=== PATIENT | female | born 1990 | race Caucasian/White ===

== ENCOUNTER → 2016-12-10 | Outpatient (CLI) | payer OTHER ==
[~2016-12-10] MED LIST: ACET-1256 PO; PRENTAB26 PO; VALA1TAB31 PO; VALA500T60 PO
[2016-12-10 13:54] LABS: GTGD 50 Grams
== END | disposition home or self-care (01) ==
LOC: C.LAB1850 09:31
PROVIDERS: ATTEND Obstetrics & Gynecology
DX: O09.42 Supervision of pregnancy with grand multiparity, second trimester (principal); Z3A.00 Weeks of gestation of pregnancy not specified

== ENCOUNTER 2017-01-01 13:12 | Emergency (ER) | payer OTHER ==
[~2017-01-01] VITALS: Ht 170.2 cm; Wt 112.7 kg
[~2017-01-01 13:12] MED LIST changes: -ACET-1256 PO; -PRENTAB26 PO; -VALA1TAB31 PO
[2017-01-01 13:14] VITALS: TEMP 36.8; Ht 170.2 cm; Wt 112.7 kg
[2017-01-01] MEDS ORDERED: SODIUM CHLORIDE 0.9% 1000ML 1,000 ML IV STA (13:58)
[2017-01-01] MEDS ORDERED: ALBUT/IPRATROP 3MG/0.5MG NEB 3 ML VIAL INH STA (13:58)
--- NOTE | 2017-01-01 14:08 | EMERGENCY ROOM VISIT NOTE ---
History Report prepared by Angeline: Kobi Morales Under the Supervision of: Dr. Laura Brady M.D. First contact with patient: 13:47 Chief Complaint: ABDOMINAL PAIN Stated Complaint: CRAMPING,LWR BP, PAIN RT LEG/HIP,N,D-20 WKS. PREG History of Present Illness The patient is a 26 year old female who presents to the Emergency Room with complaints of persistent lower abdominal pain that started 3 days ago. She is 20 -weeks . The patient describes the pain as a cramping. She also has been experiencing constant back pain that started a week or 2 ago, in addition to a sharp pain in her right hip that radiates down her right leg. The patient notes that the hip and leg pain is constant but waxes and wanes. At worst, she says the pain is unbearable. The patient started having episodes of vomiting and diarrhea last night that has continued into this morning. She thinks she may be catching a GI bug. 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 She does not know if she overdid anything to cause her pain. This is the patient's 5th , and she says that she usually gets a UTI when . The patient denies any painful urination however. She has been urinating a bit less than normal recently. The patient also denies any chest pain, shortness of breath, or fevers. She has not had any abdominal surgeries. Source of History: patient Onset: 3 days ago Position: abdomen Quality: cramping Timing: other (persistent) Associated Symptoms: + back pain, + diarrhea, + vomiting, No SOB, No chest pain, No fevers Note: Associated symptoms: Urinating a bit less than normal. Denies painful urination. Review of Systems See HPI for pertinent positives & negatives. A total of 10 systems reviewed and were otherwise negative. Past Medical & Surgical Medical Problems: (1) Depression Family History No pertinent family history Social History Smoking Status: Never Smoker Alcohol Use: none Drug Use: none Marital Status: Housing Status: lives with family Occupation Status: employed Current/Historical Medications Scheduled Multivit/Min/Iron/Fol Ac/Pren ( Vitamin), 1 TAB PO DAILY Valacyclovir (Valtrex), 500 MG PO DAILY Scheduled PRN Acetaminophen (Tylenol), 500 MG PO Q6H PRN for Pain Allergies Coded Allergies: Morphine (Unverified Allergy, Unknown, HIVES, 01/01/17) Physical Exam Vital Signs Date Time Temp Pulse Resp B/P Pulse Ox O2 Delivery O2 Flow Rate FiO2 01/01/17 16:14 95 16 108/72 100 01/01/17 14:59 92 18 98 Room Air 01/01/17 13:14 36.8 101 18 106/65 97 Physical Exam Vital signs reviewed. General: Well-appearing obese 26 year old female, in no significant distress. HEENT: No scleral icterus, PERRLA, neck supple. Atraumatic. Cardiovascular: Regular rate and rhythm, no extra sounds. Pulmonary: Clear to auscultation bilaterally, normal work of breathing. Abdomen: Gravid abdomen, mild right lower quadrant tenderness to palpation, positive bowel sounds. Musculoskeletal: Atraumatic, no peripheral edema. No CVA tenderness. Neurologic: Patient awake alert and oriented x 3, full strength in all 4 extremities. Cranial nerves 2 through 12 grossly intact. Skin: Warm, dry, no rash Medical Decision & Procedures Laboratory Results 01/01/17 14:25 Red Blood Count 4.05, Mean Corpuscular Volume 86.2, Mean Corpuscular Hemoglobin 29.1, Mean Corpuscular Hemoglobin Concent 33.8, Mean Platelet Volume 9.1, Neutrophils (%) (Auto) 78.2, Lymphocytes (%) (Auto) 15.6, Monocytes (%) (Auto) 5.5, Eosinophils (%) (Auto) 0.3, Basophils (%) (Auto) 0.1, Neutrophils # (Auto) 5.73, Lymphocytes # (Auto) 1.14, Monocytes # (Auto) 0.40, Eosinophils # (Auto) 0.02, Basophils # (Auto) 0.01 01/01/17 14:25 Test 01/01/17 14:25 01/01/17 14:55 White Blood Count 7.32 K/uL (4.8-10.8) Red Blood Count 4.05 M/uL (4.2-5.4) Hemoglobin 11.8 g/dL (12.0-16.0) Hematocrit 34.9 % (37-47) Mean Corpuscular Volume 86.2 fL (80-100) Mean Corpuscular Hemoglobin 29.1 pg (25-34) Mean Corpuscular Hemoglobin Concent 33.8 g/dl (32-36) Platelet Count 215 K/uL (130-400) Mean Platelet Volume 9.1 fL (7.4-10.4) Neutrophils (%) (Auto) 78.2 % Lymphocytes (%) (Auto) 15.6 % Monocytes (%) (Auto) 5.5 % Eosinophils (%) (Auto) 0.3 % Basophils (%) (Auto) 0.1 % Neutrophils # (Auto) 5.73 K/uL (1.4-6.5) Lymphocytes # (Auto) 1.14 K/uL (1.2-3.4) Monocytes # (Auto) 0.40 K/uL (0.11-0.59) Eosinophils # (Auto) 0.02 K/uL (0-0.5) Basophils # (Auto) 0.01 K/uL (0-0.2) RDW Standard Deviation 43.2 fL (36.4-46.3) RDW Coefficient of Variation 13.9 % (11.5-14.5) Immature Granulocyte % (Auto) 0.3 % Immature Granulocyte # (Auto) 0.02 K/uL (0.00-0.02) Anion Gap 10.0 mmol/L (3-11) Est Creatinine Clear Calc Drug Dose 199.0 ml/min Estimated GFR () 149.0 Estimated GFR (Non- 128.5 BUN/Creatinine Ratio 10.9 (10-20) Calcium Level 8.1 mg/dl (8.5-10.1) Magnesium Level 2.0 mg/dl (1.8-2.4) Total Bilirubin 0.4 mg/dl (0.2-1) Direct Bilirubin < 0.1 mg/dl (0-0.2) Aspartate Amino Transf (AST/SGOT) 13 U/L (15-37) Alanine Aminotransferase (ALT/SGPT) 14 U/L (12-78) Alkaline Phosphatase 62 U/L (45-117) Total Protein 7.2 gm/dl (6.4-8.2) Albumin 3.0 gm/dl (3.4-5.0) Urine Color YELLOW Urine Appearance CLEAR (CLEAR) Urine pH 6.0 (4.5-7.5) Urine Specific [place] 1.032 (1.000-1.030) Urine Protein NEG (NEG) Urine Glucose (UA) NEG (NEG) Urine Ketones TRACE (NEG) Urine Occult Blood NEG (NEG) Urine Nitrite NEG (NEG) Urine Bilirubin NEG (NEG) Urine Urobilinogen NEG (NEG) Urine Leukocyte Esterase NEG (NEG) Laboratory results per my review. Medications Administered Medications (Trade) Dose Ordered Sig/Debi Route Start Time Stop Time Status Last Admin Dose Admin Sodium Chloride (Nss 1000ml) 1,000 ml @ 999 mls/hr Q1H1M STAT IV 01/01/17 13:58 01/01/17 14:58 DC 01/01/17 14:55 999 MLS/HR ED Course 1355: Past medical records reviewed. The patient was evaluated in room B6. A complete history and physical examination was performed. 1358: Ordered NSS 1000 ml @ 999 mls/hr IV, Duoneb 3 ml INH. 1545: Upon reevaluation, the patient appeared to have improvement of her symptoms. I discussed findings with her. She verbalized agreement of the treatment plan. She was discharged home. Medical Decision Differential diagnoses include: appendicitis, diverticulitis, ovarian cyst, round ligament pain, sciatica, labor, pyelonephritis, cystitis. This pt was evaluated and appeared to be in no distress. IV access was obtained and lab work was drawn. PT was hydrated with NSS. UA was negative, lab work was unrevealing. Pt has had this pain for several weeks, I am not inclined to think that this is acute etiology. There were no acute peritoneal signs. Pt was stable for d/c to f/u with OBGYN this week. She will return to the ED for worsening of symptoms or any medical concerns. Impression Primary Impression: Right groin pain Additional Impression: with 20 completed weeks gestation Scribe Attestation The scribe's documentation has been prepared under my direction and personally reviewed by me in its entirety. I confirm that the note above accurately reflects all work, treatment, procedures, and medical decision making performed by me. Departure Information Dispostion Home / Self-Care Referrals No Doctor, Assigned (PCP) Vasu Mcdonald M.D. Forms HOME CARE DOCUMENTATION FORM, IMPORTANT VISIT INFORMATION Patient Instructions My [facility] Additional Instructions Diagnosis: Right groin pain, 20 week . Drink plenty of clear fluids. Tylenol 650 mg every 6 hours as needed for pain or fever. Follow-up with your [facility] physician this week for reevaluation. Return to the ER for worsening of symptoms or any medical concerns. Problem Qualifiers
[2017-01-01 14:38] LABS: BASO % 0.1 %; BASO ABS # 0.01 K/uL (0-0.2); COMPLETE YES; EOS % 0.3 %; HEMATOCRIT 34.9 % (37-47); IG% 0.3 %; LYMPH % 15.6 %; LYMPH ABS # 1.14 K/uL (1.2-3.4); MEAN CELL VOLUME 86.2 fL (80-100); MEAN CORPUSCULAR HEMOGLOBIN 29.1 pg (25-34); MEAN CORPUSCULAR HGB CONC 33.8 g/dl (32-36); MEAN PLATELET VOLUME 9.1 fL (7.4-10.4); MONO % 5.5 %; NEUT % 78.2 %; PLATELET COUNT 215 K/uL (130-400); RED BLOOD COUNT 4.05 M/uL (4.2-5.4); WHITE BLOOD COUNT 7.32 K/uL (4.8-10.8)
[2017-01-01 15:04] LABS: ALT/SGPT 14 U/L (12-78); BLOOD UREA NITROGEN 6 mg/dl (7-18); BUN/CREATININE RATIO 10.9 (10-20); CALCIUM 8.1 mg/dl (8.5-10.1); CARBON DIOXIDE 20 mmol/L (21-32); CHLORIDE 107 mmol/L (98-107); CREATININE 0.55 mg/dl (0.60-1.20); GLUCOSE 82 mg/dl (70-99); POTASSIUM 3.6 mmol/L (3.5-5.1); SODIUM 137 mmol/L (136-145)
[2017-01-01 15:07] LABS: ALKALINE PHOSPHATASE 62 U/L (45-117); AST/SGOT 13 U/L (15-37)
[2017-01-01 15:27] LABS: URINE APPEARANCE CLEAR (CLEAR); URINE BILIRUBIN NEG (NEG); URINE COLOR YELLOW; URINE NITRITE NEG (NEG); URINE SPECIFIC GRAVITY 1.032 (1.000-1.030); UROBILINOGEN NEG (NEG); ZZUR CULT IF INDIC CLEAN CATCH NO
[2017-01-01 15:30] LABS: MANUAL MICROSCOPIC REQUIRED? NO; REVIEW REQ? NO
[2017-01-01 16:14] VITALS: BP 108/72; PULSE 95; O2SAT 100
[2017-03-16] MEDS ORDERED: PRENTAB26 PO (00:26)
[2017-03-16] MEDS ORDERED: ACET-1256 PO (00:27)
== END 2017-01-01 16:16 | disposition home or self-care (01) ==
LOC: C.EDB 13:14
DX: O26.892 Other specified pregnancy related conditions, second trimester (principal); R10.9 Unspecified abdominal pain; Z3A.20 20 weeks gestation of pregnancy; F32.9 Major depressive disorder, single episode, unspecified; Z79.899 Other long term (current) drug therapy

== ENCOUNTER → 2017-02-27 | Outpatient (CLI) | payer OTHER ==
[~2017-02-27] MED LIST changes: +ACET-1256 PO; +PRENTAB26 PO; +VALA1TAB31 PO
[2017-02-27 11:05] LABS: URINE APPEARANCE CLEAR (CLEAR); URINE BILIRUBIN NEG (NEG); URINE COLOR YELLOW; URINE EPITHELIAL CELL AUTO 20-30 /lpf (0-5); URINE NITRITE NEG (NEG); URINE PH 6.5 (4.5-7.5); URINE SPECIFIC GRAVITY 1.022 (1.000-1.030); UROBILINOGEN NEG (NEG)
[2017-02-27 11:06] LABS: MANUAL MICROSCOPIC REQUIRED? NO; REVIEW REQ? NO
[2017-02-27 12:19] LABS: HEMATOCRIT 32.3 % (37-47)
[2017-02-27 13:21] LABS: GTGD 50 Grams
== END | disposition home or self-care (01) ==
LOC: C.LAB1850 09:25
PROVIDERS: ATTEND Obstetrics & Gynecology
DX: O09.43 Supervision of pregnancy with grand multiparity, third trimester (principal); Z3A.00 Weeks of gestation of pregnancy not specified

== ENCOUNTER → 2017-03-10 | Outpatient (CLI) | payer OTHER ==
[2017-03-10 14:44] LABS: URINE APPEARANCE CLEAR (CLEAR); URINE BILIRUBIN NEG (NEG); URINE COLOR DK YELLOW; URINE EPITHELIAL CELL AUTO >30 /lpf (0-5); URINE NITRITE NEG (NEG); URINE PH 6.5 (4.5-7.5); URINE SPECIFIC GRAVITY 1.025 (1.000-1.030); UROBILINOGEN NEG (NEG)
[2017-03-10 14:50] LABS: MANUAL MICROSCOPIC REQUIRED? NO; REVIEW REQ? NO
== END | disposition home or self-care (01) ==
LOC: C.LABSPEC 14:06
PROVIDERS: ATTEND Obstetrics & Gynecology
DX: R30.0 Dysuria (principal)

== ENCOUNTER 2017-03-16 20:01 | Emergency (ER) | payer OTHER ==
[~2017-03-16] VITALS: Ht 170.2 cm; Wt 118.0 kg
[~2017-03-16 20:01] MED LIST changes: -VALA1TAB31 PO
[2017-03-16 20:05] VITALS: TEMP 36.8; Ht 170.2 cm; Wt 118.0 kg
[2017-03-16] MEDS ORDERED: SODIUM CHLORIDE 0.9% 1000ML 1,000 ML IV ONE (20:33)
[2017-03-16] MEDS ORDERED: SODIUM CHLORIDE 0.9% 1000ML 1,000 ML IV STA (20:33)
--- NOTE | 2017-03-16 20:35 | EMERGENCY ROOM VISIT NOTE ---
History Report prepared by Mendozaibzhen: Connor Rodrigez Under the Supervision of: Dr. Gold Strickland M.D. First contact with patient: 20:18 Chief Complaint: GI ASSESSMENT Stated Complaint: PAIN AROUND GALL BLADDER, DIZZY, 30 WKS PREG Nursing Triage Summary: Pt is 30+ weeks . c/o right flank pain, nausea and diarrhea. pt to be evaled in ED per dr Mar unless BP or VS elevated History of Present Illness The patient is a 26 year old female who presents to the Emergency Room with complaints of worsening right upper quadrant abdominal pain since yesterday. The pain radiates to her back. The pain is dull in nature, and is worse when she lays on her back. She becomes short of breath with exertion. She currently has a minor headache. She denies chest pain, urinary symptoms, pain or swelling of the legs. She had a UTI that is resolved one week ago. The patient still has her gallbladder, but does have a family history of gallbladder disease. The patient is 30 weeks . P:4. She has only had vaginal deliveries. The patient is not having contractions or vaginal discharge. She denies any history of blood clots. Source of History: patient, spouse/significant other Onset: yesterday Position: abdomen (RUQ) Quality: dull Timing: worsening Associated Symptoms: + SOB, + back pain, + headache, No chest pain, No urinary symptoms Review of Systems See HPI for pertinent positives & negatives. A total of 10 systems reviewed and were otherwise negative. Past Medical & Surgical Medical Problems: (1) Depression Old medical records were reviewed. Nurse's notes were reviewed and I agree with. This is her fifth . Family History No pertinent family history Her sisters have had gallbladders removed Social History Smoking Status: Never Smoker Alcohol Use: none Drug Use: none Marital Status: Housing Status: lives with family Occupation Status: employed Current/Historical Medications Scheduled Multivit/Min/Iron/Fol Ac/Pren ( Vitamin), 1 TAB PO DAILY Valacyclovir Hcl (Valtrex), 1 GM PO DAILY Scheduled PRN Acetaminophen (Tylenol), 500 MG PO Q6H PRN for Pain Allergies Coded Allergies: Morphine (Unverified Allergy, Unknown, HIVES, 01/01/17) Physical Exam Vital Signs Date Time Temp Pulse Resp B/P Pulse Ox O2 Delivery O2 Flow Rate FiO2 03/16/17 23:46 71 18 111/68 99 03/16/17 22:11 73 16 118/73 97 Room Air 03/16/17 20:05 36.8 103 18 116/79 96 Room Air Physical Exam General: Non ill appearing gravid young female, breathing comfortably on room air. Normal speech HEENT: Normal cephalic atraumatic. Pupils are equal round and reactive to light. Extraocular movements are intact. Oropharynx is pink with moist mucous membranes. No swelling of the mouth lips or tongue. Neck: Supple with a midline trachea. No meningeal signs or stiffness, no JVD or bruits. No Stridor. Chest: Clear to auscultation bilaterally. No wheezes or rhonchi. No increased work of breathing. Heart: regular rate and rhythm. Abdomen: Moderately tender in the right upper quadrant without rebound guarding or rigidity. No lower abdominal tenderness. Extremities: No cyanosis clubbing or edema. No calf tenderness or assymetry Spine/Back. Non tender to palpation. No CVA tenderness Skin: Good turgor without rashes. Neurologic exam: Cranial nerves two through 12 are intact. Motor and sensation are intact and symmetrical throughout. Medical Decision & Procedures ER Provider Diagnostic Interpretation: Radiology results as stated below per my review and radiologist interpretation: ABDOMINAL ULTRASOUND, RIGHT UPPER QUADRANT HISTORY: Right upper quadrant abdominal pain.. COMPARISON: Abdominal ultrasound 06/02/2015. Abdomen and pelvis CT 08/18/2015. FINDINGS: Pancreas: Obscured by overlying bowel gas. Liver: A 1.8 cm hyperechoic area within the left hepatic lobe near the falciform ligament likely represents focal fat. This remains unchanged. Gallbladder: No gallbladder wall thickening. No gallstones. CBD: 4 mm. Right kidney: Mild hydronephrosis. Miscellaneous: Normal bladder. Bilateral ureteral jets are identified. IMPRESSION: 1. Mild right hydronephrosis. However, there is a normal bladder and the bilateral ureteral jets are identified. Therefore, this could be due to the patient's . 2. No gallbladder wall thickening. No gallstones. Electronically signed by: Sherwin Marshall M.D. 03/16/2017 10:11 PM Dictated Date/Time: 03/16/2017 10:08 PM Laboratory Results 03/16/17 20:55 Red Blood Count 3.72, Mean Corpuscular Volume 86.0, Mean Corpuscular Hemoglobin 28.2, Mean Corpuscular Hemoglobin Concent 32.8, Mean Platelet Volume 9.3, Neutrophils (%) (Auto) 68.4, Lymphocytes (%) (Auto) 24.6, Monocytes (%) (Auto) 6.1, Eosinophils (%) (Auto) 0.5, Basophils (%) (Auto) 0.1, Neutrophils # (Auto) 7.02, Lymphocytes # (Auto) 2.53, Monocytes # (Auto) 0.63, Eosinophils # (Auto) 0.05, Basophils # (Auto) 0.01 03/16/17 20:55 Test 03/16/17 20:55 White Blood Count 10.27 K/uL (4.8-10.8) Red Blood Count 3.72 M/uL (4.2-5.4) Hemoglobin 10.5 g/dL (12.0-16.0) Hematocrit 32.0 % (37-47) Mean Corpuscular Volume 86.0 fL (80-100) Mean Corpuscular Hemoglobin 28.2 pg (25-34) Mean Corpuscular Hemoglobin Concent 32.8 g/dl (32-36) Platelet Count 245 K/uL (130-400) Mean Platelet Volume 9.3 fL (7.4-10.4) Neutrophils (%) (Auto) 68.4 % Lymphocytes (%) (Auto) 24.6 % Monocytes (%) (Auto) 6.1 % Eosinophils (%) (Auto) 0.5 % Basophils (%) (Auto) 0.1 % Neutrophils # (Auto) 7.02 K/uL (1.4-6.5) Lymphocytes # (Auto) 2.53 K/uL (1.2-3.4) Monocytes # (Auto) 0.63 K/uL (0.11-0.59) Eosinophils # (Auto) 0.05 K/uL (0-0.5) Basophils # (Auto) 0.01 K/uL (0-0.2) RDW Standard Deviation 43.3 fL (36.4-46.3) RDW Coefficient of Variation 13.8 % (11.5-14.5) Immature Granulocyte % (Auto) 0.3 % Immature Granulocyte # (Auto) 0.03 K/uL (0.00-0.02) Urine Color DK YELLOW Urine Appearance CLEAR (CLEAR) Urine pH 6.5 (4.5-7.5) Urine Specific [place] 1.033 (1.000-1.030) Urine Protein NEG (NEG) Urine Glucose (UA) NEG (NEG) Urine Ketones TRACE (NEG) Urine Occult Blood NEG (NEG) Urine Nitrite NEG (NEG) Urine Bilirubin NEG (NEG) Urine Urobilinogen NEG (NEG) Urine Leukocyte Esterase TRACE (NEG) Urine WBC (Auto) 1-5 /hpf (0-5) Urine RBC (Auto) 0-4 /hpf (0-4) Urine Hyaline Casts (Auto) 1-5 /lpf (0-5) Urine Epithelial Cells (Auto) >30 /lpf (0-5) Urine Bacteria (Auto) NEG (NEG) Anion Gap 10.0 mmol/L (3-11) Est Creatinine Clear Calc Drug Dose 233.9 ml/min Estimated GFR () > 150.0 Estimated GFR (Non- 134.4 BUN/Creatinine Ratio 11.9 (10-20) Calcium Level 8.4 mg/dl (8.5-10.1) Total Bilirubin 0.3 mg/dl (0.2-1) Direct Bilirubin < 0.1 mg/dl (0-0.2) Aspartate Amino Transf (AST/SGOT) 10 U/L (15-37) Alanine Aminotransferase (ALT/SGPT) 16 U/L (12-78) Alkaline Phosphatase 79 U/L (45-117) Total Protein 6.8 gm/dl (6.4-8.2) Albumin 2.7 gm/dl (3.4-5.0) Lipase 190 U/L (73-393) Laboratory studies as stated above per my review. Medications Administered Medications (Trade) Dose Ordered Sig/Debi Route Start Time Stop Time Status Last Admin Dose Admin Sodium Chloride 1,000 ml @ 999 mls/hr Q1H1M STAT IV 03/16/17 20:33 03/16/17 21:33 DC 03/16/17 20:33 999 MLS/HR Sodium Chloride (Nss 1000ml) 1,000 ml @ 200 mls/hr Q5H ONCE IV 03/16/17 20:33 03/16/17 23:58 DC 03/16/17 20:33 200 MLS/HR ED Course 2020: Past medical records reviewed. The patient was evaluated in room C1b, and a complete history and physical examination were performed. 2032: NSS 1000 ml @ 200 mls/hr, NSS 1000 ml @ 999 mls/hr. 2227: Checked on the patient. She is resting comfortably. Plasma Processing Centrifuge Operator paged. 2230: Discussed the case with Dr. Banda, Plasma Processing Centrifuge Operator. She requested a HR. 2330: Reassessed the patient. Discussed the findings with her. She verbalized understanding and agreement of the treatment plan. The patient is ready for discharge. Medical Decision Differential diagnosis includes gallbladder disease, complication, pulmonary process, electrolyte or metabolic abnormality. This patient comes in as described above. She is 30 weeks she has right upper quadrant pain this worse with palpation. It is definitely reproducible. She has no fever or chills or nausea or vomiting. She has no peritonitis she has no lower abdominal tenderness or anything to suggest contractions. She's had no vaginal bleeding or discharge. She's had 4 previous deliveries and says she does not feel like she is in labor. No chest pain or shortness of breath. IV access established and she was hydrated with a 1 L IV normal saline bolus. Multiple blood tests was obtained. She has no significant white count or fever to suggest infection. She's mildly anemia. She has no elevation of her liver function tests or lipase or anything to suggest liver, gallbladder, or pancreas disease. Gallbladder ultrasound was unremarkable. She has no stones or findings to suggest cholecystitis. She does have hydronephrosis on the right which may be related to . Her urinalysis is unremarkable. I did discuss the case with the on-call logistics center manager. She feels the patient can go home and does not need to go upstairs for monitoring. We did check heart tones and they were normal. The patient has no peripheral edema or protein in her urine or elevation of her blood pressure or anything to suggest preeclampsia or eclampsia at this point. The patient tells me that when they did the ultrasound they were having a hard time seen in the gallbladder initially due to the baby's head in the way and could be that this position is causing some discomfort. The patient will be discharged to home and should follow-up with RN POOL this week and return if : increasing pain, worsening of symptoms, vaginal bleeding or discharge, any new problems concerns. They're happy with plan and discharged. Consults Time Called: 2227 Consulting Physician: Dr. Banda, Plasma Processing Centrifuge Operator Returned Call: [phone]: Discussed the case with Dr. Banda, Plasma Processing Centrifuge Operator. She requested a HR. Impression Primary Impression: RUQ abdominal pain Additional Impression: Scribe Attestation The scribe's documentation has been prepared under my direction and personally reviewed by me in its entirety. I confirm that the note above accurately reflects all work, treatment, procedures, and medical decision making performed by me. Departure Information Dispostion Home / Self-Care Referrals No Doctor, Assigned (PCP) Forms HOME CARE DOCUMENTATION FORM, IMPORTANT VISIT INFORMATION Patient Instructions My [facility] Additional Instructions Rest. Drink plenty of fluids. Return if: Increasing pain, worsening of symptoms, fever or chills, contractions , lower abdominal pain, vaginal bleeding or discharge May use Tylenol 650 mg every 6 hours as needed for pain. Do not exceed this dosage. Follow-up with RN POOL this week for recheck Problem Qualifiers
[2017-03-16] MEDS ORDERED: VALA1TAB31 PO (20:45)
[2017-03-16 21:09] LABS: BASO % 0.1 %; BASO ABS # 0.01 K/uL (0-0.2); COMPLETE YES; EOS % 0.5 %; IG% 0.3 %; LYMPH % 24.6 %; LYMPH ABS # 2.53 K/uL (1.2-3.4); MEAN CORPUSCULAR HEMOGLOBIN 28.2 pg (25-34); MEAN CORPUSCULAR HGB CONC 32.8 g/dl (32-36); MEAN PLATELET VOLUME 9.3 fL (7.4-10.4); MONO % 6.1 %; NEUT % 68.4 %; PLATELET COUNT 245 K/uL (130-400); RED BLOOD COUNT 3.72 M/uL (4.2-5.4); WHITE BLOOD COUNT 10.27 K/uL (4.8-10.8)
[2017-03-16 21:22] LABS: URINE APPEARANCE CLEAR (CLEAR); URINE BILIRUBIN NEG (NEG); URINE COLOR DK YELLOW; URINE EPITHELIAL CELL AUTO >30 /lpf (0-5); URINE NITRITE NEG (NEG); URINE PH 6.5 (4.5-7.5); URINE SPECIFIC GRAVITY 1.033 (1.000-1.030); UROBILINOGEN NEG (NEG)
[2017-03-16 21:25] LABS: BLOOD UREA NITROGEN 6 mg/dl (7-18); BUN/CREATININE RATIO 11.9 (10-20); CARBON DIOXIDE 23 mmol/L (21-32); CHLORIDE 106 mmol/L (98-107); CREATININE 0.48 mg/dl (0.60-1.20); GLUCOSE 99 mg/dl (70-99); MANUAL MICROSCOPIC REQUIRED? NO; POTASSIUM 3.8 mmol/L (3.5-5.1); REVIEW REQ? NO; SODIUM 139 mmol/L (136-145)
[2017-03-16 21:28] LABS: ALKALINE PHOSPHATASE 79 U/L (45-117); ALT/SGPT 16 U/L (12-78); AST/SGOT 10 U/L (15-37)
[2017-03-16 21:58] LABS: CALCIUM 8.4 mg/dl (8.5-10.1)
--- NOTE | 2017-03-16 22:13 | DIAGNOSTIC IMAGING REPORT ---
ABDOMINAL ULTRASOUND, RIGHT UPPER QUADRANT HISTORY: Right upper quadrant abdominal pain.. COMPARISON: Abdominal ultrasound 06/02/2015. Abdomen and pelvis CT 08/18/2015. FINDINGS: Pancreas: Obscured by overlying bowel gas. Liver: A 1.8 cm hyperechoic area within the left hepatic lobe near the falciform ligament likely represents focal fat. This remains unchanged. Gallbladder: No gallbladder wall thickening. No gallstones. CBD: 4 mm. Right kidney: Mild hydronephrosis. Miscellaneous: Normal bladder. Bilateral ureteral jets are identified. IMPRESSION: 1. Mild right hydronephrosis. However, there is a normal bladder and the bilateral ureteral jets are identified. Therefore, this could be due to the patient's . 2. No gallbladder wall thickening. No gallstones. Electronically signed by: Sherwin Marshall M.D. 03/16/2017 10:11 PM Dictated Date/Time: 03/16/2017 10:08 PM
[2017-03-16 23:46] VITALS: BP 111/68; PULSE 71; O2SAT 99
== END 2017-03-16 23:47 | disposition home or self-care (01) ==
LOC: C.EDB 20:03 → C.EDC 23:47
DX: R10.11 Right upper quadrant pain (principal); O26.893 Other specified pregnancy related conditions, third trimester; O99.343 Other mental disorders complicating pregnancy, third trimester; F32.9 Major depressive disorder, single episode, unspecified; Z3A.30 30 weeks gestation of pregnancy

== ENCOUNTER 2017-03-18 16:42 | Outpatient (CLI) | payer OTHER ==
[~2017-03-18] VITALS: Ht 170.2 cm; Wt 117.5 kg
[~2017-03-18 16:42] MED LIST changes: +VALA1TAB31 PO; -VALA500T60 PO
[2017-03-18 18:15] VITALS: Ht 170.2 cm; Wt 117.5 kg
== END 2017-03-18 18:20 | disposition home or self-care (01) ==
LOC: C.LD 16:42 → C.OPB 16:42
PROVIDERS: ATTEND Obstetrics & Gynecology
DX: Z34.83 Encounter for supervision of other normal pregnancy, third trimester (principal); Z3A.31 31 weeks gestation of pregnancy

== ENCOUNTER 2017-03-28 20:29 | Outpatient (CLI) | payer OTHER ==
[~2017-03-28] VITALS: Ht 170.2 cm; Wt 119.0 kg
[2017-03-28 22:01] VITALS: Ht 170.2 cm; Wt 119.0 kg
== END 2017-03-28 21:40 | disposition home or self-care (01) ==
LOC: C.OPB 20:29 → C.LD 20:31 → C.OPB 21:40
PROVIDERS: ATTEND Obstetrics & Gynecology
DX: O36.8130 Decreased fetal movements, third trimester, not applicable or unspecified (principal); Z3A.32 32 weeks gestation of pregnancy

== ENCOUNTER → 2017-04-11 | Outpatient (CLI) | payer OTHER ==
[2017-04-11 15:51] LABS: HEMATOCRIT 32.7 % (37-47); MEAN CELL VOLUME 85.6 fL (80-100); MEAN PLATELET VOLUME 9.1 fL (7.4-10.4); PLATELET COUNT 243 K/uL (130-400); RED BLOOD COUNT 3.82 M/uL (4.2-5.4); WHITE BLOOD COUNT 10.27 K/uL (4.8-10.8)
[2017-04-11 15:55] LABS: MEAN CORPUSCULAR HGB CONC 32.7 g/dl (32-36)
[2017-04-11 16:17] LABS: ALB/GLOB RATIO 0.7 (0.9-2); ALKALINE PHOSPHATASE 97 U/L (45-117); ALT/SGPT 13 U/L (12-78); AST/SGOT 10 U/L (15-37); BLOOD UREA NITROGEN 8 mg/dl (7-18); BUN/CREATININE RATIO 15.5 (10-20); CALCIUM 8.4 mg/dl (8.5-10.1); CARBON DIOXIDE 23 mmol/L (21-32); CHLORIDE 107 mmol/L (98-107); CREATININE 0.52 mg/dl (0.60-1.20); GLUCOSE 83 mg/dl (70-99); POTASSIUM 4.2 mmol/L (3.5-5.1); SODIUM 142 mmol/L (136-145)
== END | disposition home or self-care (01) ==
LOC: C.LAB1850 15:29
PROVIDERS: ATTEND Obstetrics & Gynecology
DX: O12.13 Gestational proteinuria, third trimester (principal)

== ENCOUNTER 2017-04-20 23:04 | Inpatient (IN) | payer OTHER ==
[~2017-04-20] VITALS: Ht 170.2 cm; Wt 121.0 kg
[2017-05-14] MEDS ORDERED: LACTATED RINGER'S 1000ML 1,000 ML IV PRN (07:53)
[2017-05-14] MEDS ORDERED: LACTATED RINGER'S 1000ML 1,000 ML IV SCH ×2 (07:53→21:41)
[2017-05-14 08:13] VITALS: Ht 170.2 cm; Wt 121.0 kg
[2017-05-14 08:22] LABS: MEAN CELL VOLUME 83.8 fL (80-100); MEAN CORPUSCULAR HGB CONC 32.3 g/dl (32-36); MEAN PLATELET VOLUME 9.6 fL (7.4-10.4); PLATELET COUNT 210 K/uL (130-400); WHITE BLOOD COUNT 8.65 K/uL (4.8-10.8)
[2017-05-14] MEDS ORDERED: PENICILLIN G POTASSIUM IV 6 MU in DEXTROSE 5% 250ML 250 ML IV ONE (08:30)
[2017-05-14] MEDS: PENICILLIN G POTASSIUM IV 3 MU in DEXTROSE 5% 100ML 100 ML IV PRN ×3 (12:29→20:30)
[2017-05-14] MEDS ORDERED: LACTATED RINGER'S 1000ML 500 ML IV PRN ×2 (12:58→18:01)
[2017-05-14] MEDS ORDERED: OXYTOCIN 30 UNITS/500ML NSS IV PRN ×2 (13:00→21:45)
--- NOTE | 2017-05-14 16:42 | Medical Student: [facility] ---
Medical Student Progress Note Date of Service May 14, 2017. Progress Note Subjective: Nadine is a 5 para 4004 admitted for labor induction. Penicillin started. Labor augmented with pitocin and AROM. Patient reports some nausea but is otherwise comfortable with her epidural. Objective: VS - HR 102 T 98.7 BP 95/53 R 20 Cervix - 8cm dilated, 80% effaced, 0 station EFM - Baseline - 150 Variability - moderate Accelerations - present Decelerations - variable Imelda every 2 minutes Assessment and Plan: This is a admitted for labor induction. Continue to monitor and anticipate vaginal delivery.
[2017-05-14] MEDS ORDERED: BUPIVACAINE 0.25% 30 ML VIAL ONE (16:55)
[2017-05-14] MEDS ORDERED: EpHEDrine SULFATE INJ 50 MG/ML AMP ONE (16:56)
[2017-05-14] MEDS ORDERED: FENTANYL 2MCG/ML ROPIV 1.25MG/ML 100ML BAG EPI ONE (16:56)
[2017-05-14] MEDS ORDERED: FENTANYL CITRATE INJ 50 MCG/1 ML 2 ML VIAL ONE (16:56)
[2017-05-14] MEDS ORDERED: NALOXONE HCL INJ 1 MG in SODIUM CHLORIDE 0.9% 1000ML 1,000 ML IV PRN ×4 (18:01)
[2017-05-14] MEDS ORDERED: NALOXONE HCL INJ 0.4 MG/1 ML VIAL/CARP IV PRN (18:15)
[2017-05-14] MEDS ORDERED: EpHEDrine SULFATE INJ 50 MG/ML AMP IV PRN (18:15)
[2017-05-14] MEDS ORDERED: NALBUPHINE HCL INJ 10 MG/ML AMP IV PRN (18:15)
[2017-05-14] MEDS ORDERED: DiphenhydrAMINE HCL 50 MG/ML VIAL IV PRN (18:15)
[2017-05-14] MEDS ORDERED: FENTANYL 2MCG/ML ROPIV 1.25MG/ML 100ML BAG EPI PRN (18:15)
[2017-05-14] MEDS ORDERED: ONDANSETRON INJ 2 MG/ML 2 ML VIAL IV PRN (18:15)
[2017-05-14] MEDS ORDERED: PROMETHAZINE HCL INJ 25 MG in SODIUM CHLORIDE 0.9% 50ML 50 ML IV PRN (18:15)
--- NOTE | 2017-05-14 21:26 | Medical Student: [facility] ---
Medical Student Delivery Note Nadine Jones is a G5 now [id number] who presented to labor and delivery for induction of labor at 37 weeks-0/7. Labor was augmented with Pitocin and AROM. Patient is GBS positive and received penicillin. Over the course of the day, the patient labored down and was ready to push. A viable male restituted to the left occiput transverse position upon delivery of the head where a nuchal cord was identified, doubly clamped, and transected. The infant's shoulders and body were then delivered without difficulty at 2106 over an intact perineum. The was placed on the maternal abdomen for drying and attention where his mouth and nose were bulb suctioned. scores were 8 and 9. Weight pending. An intact placenta with a 3 vessel cord was delivered shortly after with uterine massage and maximus downward traction. Hemostasis was achieved with continued uterine massage and did not require further intervention. EBL was 300 cc. Both mother and baby are doing well and are recovering together currently.
[2017-05-14] MEDS ORDERED: HYDROCORTISONE ACETATE 25 MG SUPP PR PRN (21:45)
[2017-05-14] MEDS ORDERED: BENZOCAINE 20% AER SPR 82.5 GM CAN EXT PRN (21:45)
[2017-05-14] MEDS ORDERED: OXYCODONE/ACETAMINOPHEN 5-325 TAB PO PRN (21:45)
[2017-05-14] MEDS ORDERED: SUPERCREAM 0.870 % 15GM JAR EXT PRN (21:45)
[2017-05-14] MEDS ORDERED: LANOLIN OINT EXT PRN ×2 (21:45)
--- NOTE | 2017-05-14 22:00 | Anesthesia Procedure Note ---
Anesthesia Epidural Removal Nt Date & Time May 14, 2017 at 22:00 Vital Signs Pain Intensity: 0.0 Notes Mental Status: alert / awake / arousable, participated in evaluation Nausea / Vomiting: adequately controlled Pain: adequately controlled Airway Patency, RR, SpO2: stable & adequate BP & HR: stable & adequate Hydration State: stable & adequate Neuraxial Anesthesia: was administered Anesthetic Complications: no major complications apparent, pt satisfied with anesthetic care Epidural: removed without complications, with tip intact
--- NOTE | 2017-05-14 22:05 | DELIVERY SUMMARY ---
DATE OF OPERATION: 05/14/2017 PREOPERATIVE DIAGNOSIS: 1. [place] intrauterine at term. 2. Elective induction of labor. 3. Group B strep positive. POSTOPERATIVE DIAGNOSIS: Same. PROCEDURE: Spontaneous vaginal delivery. SURGEON: Dr. Mandel. CORPORATE BOND TRADER: None. ESTIMATED BLOOD LOSS: 300 mL. COMPLICATIONS: None. DISPOSITION: Stable in the delivery room. DESCRIPTION: Nadine is a 27-year-old G5, P4, who was brought to labor and delivery for induction at 39 weeks due to both maternal request and positive group B strep status in the face of grand multiparity. The patient received 2 doses of penicillin after being admitted to the hospital. Once the second dose was administered, her membranes were artificially ruptured and Pitocin was started. The patient labored and was able to reach complete dilation on the evening of 05/14/2017. I was then called to the room for delivery. She was prepped and then coached through pushing. Over the first few pushes, she was able to deliver the head of her infant spontaneously, followed by palpation of a tight double nuchal cord. This was unable to be reduced over the head. Therefore, I doubly clamped and cut the cord. The patient was then instructed to push and she was able to deliver both shoulders and the remainder of the infant with no difficulty. The infant was placed on the maternal abdomen, where it began crying and moved all 4 extremities equally. The placenta delivered spontaneously and was found to be intact with a 3-vessel cord. There were no lacerations of the cervix, vagina or perineum requiring repair. I attest to the content of the Intraoperative Record and any orders documented therein. Any exceptions are noted below. MTDD
[2017-05-14 23:45] VITALS: BP 121/71; PULSE 93; TEMP 36.7
[2017-05-15 03:37] VITALS: BP 108/70; PULSE 80; TEMP 36.8
[2017-05-15] MEDS: ACETAMINOPHEN 325 MG TAB PO PRN ×2 (03:45→09:11)
--- NOTE | 2017-05-15 06:35 | Medical Student: [facility] ---
Med Student REGIONAL COORDINATOR Progress Nt Date of Service May 15, 2017. Subjective conversation w/ patient, physical exam Ambulation: ambulating normally Voiding: no voiding problems Passing Gas: Yes Diet Tolerance: Regular Diet Lochia: Small Feeding Type: Breast Feeding Notes: Nadine Jones is a 27-year-old G5 now P5005 day 1 for normal spontaneous vaginal delivery. She is doing "okay" other than having some cramps. She is taking Tylenol for this which is helping. She says she is ready to go home when her baby is ready. Review of Systems Constitutional: No fever, No chills Respiratory: No shortness of breath Cardiac: No chest pain, No edema, No palpitations Abdomen: No nausea, No vomiting Objective Vital Signs Date Time Temp Pulse Resp B/P (MAP) Pulse Ox O2 Delivery O2 Flow Rate FiO2 05/15/17 03:37 36.8 80 18 108/70 (83) Room Air 05/14/17 23:45 36.7 93 18 121/71 (88) Room Air 05/14/17 23:45 Room Air Physical Exam General Appearance: WELL-APPEARING Respiratory/Chest: lungs clear Cardiovascular: regular rate, rhythm, no gallop, + systolic murmur (likely of normal ) Abdomen: normal bowel sounds Fundus: Firm, Relation to Umbilicus (2 fingerbreadths above the umbilicus) Extremities: no pedal edema, no calf tenderness Laboratory Results Last 24 Hours Test 05/14/17 08:00 05/15/17 04:44 White Blood Count 8.65 K/uL Red Blood Count 3.70 M/uL Hemoglobin 10.0 g/dL Hematocrit 31.0 % Mean Corpuscular Volume 83.8 fL Mean Corpuscular Hemoglobin 27.0 pg Mean Corpuscular Hemoglobin Concent 32.3 g/dl RDW Standard Deviation 45.6 fL RDW Coefficient of Variation 15.0 % Platelet Count 210 K/uL Mean Platelet Volume 9.6 fL Assessment and Plan Post- Day Number: 1 Continue Routine Care: Nadine Jones is a 27-year-old G5 now P5005 day 1 for normal spontaneous vaginal delivery. Continue routine care.
[2017-05-15 06:58] LABS: HEMATOCRIT 31.9 % (37-47)
[2017-05-15] MEDS: IBUPROFEN 600 MG TAB PO PRN ×2 (07:54→18:09)
[2017-05-15] MEDS: DOCUSATE SODIUM 100 MG CAP PO SCH ×2 (07:54→19:39)
[2017-05-15] MEDS: PRENATAL VITAMIN TAB PO SCH (07:54)
[2017-05-15 08:00] VITALS: BP 105/71; PULSE 80; PULSE 81; TEMP 36.5; TEMP 36.7; O2SAT 97
--- NOTE | 2017-05-15 08:02 | Progress Note ---
Subjective May 15, 2017. Subjective conversation w/ patient, physical exam, chart review Ambulation: ambulating normally Voiding: no voiding problems Passing Gas: Yes Diet Tolerance: Regular Diet Lochia: Moderate Feeding Type: Breast Feeding Review of Systems Constitutional: No fever, No chills Respiratory: No cough Cardiac: No chest pain Abdomen: No nausea, No vomiting Objective Vital Signs Date Time Temp Pulse Resp B/P (MAP) Pulse Ox O2 Delivery O2 Flow Rate FiO2 05/15/17 03:37 36.8 80 18 108/70 (83) Room Air 05/14/17 23:45 36.7 93 18 121/71 (88) Room Air 05/14/17 23:45 Room Air Physical Exam General Appearance: WELL-APPEARING, NO APPARENT DISTRESS Respiratory/Chest: no respiratory distress, no accessory muscle use Cardiovascular: no edema Abdomen: non tender, soft Fundus: Firm Extremities: no calf tenderness Laboratory Results Last 24 Hours Test 05/15/17 06:33 Hemoglobin 10.1 g/dL Hematocrit 31.9 % Assessment and Plan Problem List Medical Problems: (1) Status: Acute (2) with 20 completed weeks gestation Status: Acute (3) Right groin pain Status: Acute (4) RUQ abdominal pain Status: Acute Post- Day#: 1 Continue Routine Care: PPD#1 routine pp care, may desire d/c home after baby circumcised and released by peds
--- NOTE | 2017-05-15 08:03 | Discharge Instructions ---
Discharge Instructions Date of Service May 15, 2017. Admission Reason for Admission: Induction Discharge Discharge Diagnosis / Problem: vaginal delivery Discharge Goals Goal(s): Routine recovery after delivery Activity Recommendations Activity Limitations: per Instructions/Follow-up section . Instructions / Follow-Up Instructions / Follow-Up ACTIVITY RECOMMENDATIONS: * Gradual return to full activity over the next 2-3 weeks. * No lifting - nothing heavier than baby over the next 2-3 weeks. * Do not engage in vigorous exercise, sexual activity or sports until cleared by your physician. * Do not drive or operate any motorized equipment until cleared by your physician. * You may shower/bathe daily. MEDICATIONS: For discomfort or pain, you may use Acetaminophen (Tylenol), Ibuprofen (Advil), or Naproxen (Aleve) following the package directions. For constipation you may use Colace following the package directions. BREAST CARE: If you are not breast feeding: * Wear a supportive bra 24 hours a day for one to two weeks. * Avoid stimulating your breasts and nipples as much as possible during the first few weeks after delivery. * When taking a shower, have the warm water hit your back, not breasts. * When your breasts feel full, apply ice packs. Usually three to four times a day helps ease the discomfort. * Take a mild pain medication (Tylenol / Motrin) when you are uncomfortable. If breast feeding: * Use breast milk to lubricate nipples. Lansinoh cream may be used for sore nipples. You do not need to remove cream prior to breast feeding. If using a different brand of cream, check the label for directions regarding removal of cream prior to nursing. * Wear a supportive bra. * If having problems with breasts or breast feeding, call a retail sales vitamin consultant or your health care provider. EPISIOTOMY CARE: After delivery, if you have an episiotomy (stitches), the following steps will ease discomfort and aid healing. * For the first 24 hours after delivery, place ice packs next to your episiotomy to help reduce swelling. * After the first 24 hour-period, sitz baths, either portable or in the tub, are suggested. A shower with a shower arm sprayed over the episiotomy may be comforting. * Camelia care should be done after each voiding and bowel movement. Squirt warm water from a plastic bottle over the perineum (region of the body between the anus and urinary opening) and pat dry. * Use Dermoplast to ease discomfort. Shake container. [place] directly over the episiotomy. Place a Tucks on a clean sanitary pad next to your episiotomy. SPECIAL CARE INSTRUCTIONS: When you are discharged from the hospital, it is important for you to follow the instructions listed below: * During the first week at home, you should be able to care for yourself and your baby. In addition, the usual light household activities are encouraged. * Limit your activities to the way you feel. Do not try to clean the house or move furniture. Be sensible. * If you actively engage in sports and have done so up until the time of your delivery, you may resume these activities as soon as you feel able. This may take up to one month or even longer. Use good judgment. * Continue to take your vitamins for at least six weeks after the of your baby. * Your diet need not be limited unless you were on a special diet before your delivery. Breast-feeding mothers need around 2500 calories per day and at least 64-80 ounces of fluid per day (8 to 10 glasses). * You should eat foods from the four major food groups. Crash diets or fad diets are to be avoided. Eating lean meats, fresh fruits and vegetables, low-fat dairy products, high fiber foods and a regular exercise program, will help you get back to your pre- weight without putting your health at risk. * Constipation is sometimes a problem after delivery. Take a mild laxative as needed. If breast feeding, Milk of Magnesia is acceptable to use. You may use a suppository or Fleets enema if no episiotomy. * A daily shower or tub bath is suggested. Be sure to thoroughly and gently dry the perineum. * A bloody vaginal discharge will usually continue until around four weeks post . A small amount of bleeding may continue for as long as six weeks. Vaginal discharge changes from the bright red bleeding after delivery to pink then brownish and finally yellowish-pink before becoming white and disappearing. * Bleeding may increase with activity. Your first period may come in 4-8 weeks. If you are breast feeding, your period may be delayed even longer. * [place] (sex) can begin whenever both you and your partner feel comfortable and do not have any form of genital infection. It is recommended that you wait at least six weeks for internal and external healing to occur. If you have questions, please talk to your health care practitioner. A condom should be used to prevent infection and . * Foreplay, gentle intercourse and lubrication is very important the first several times to prevent pain. A water-based lubricant such as K-Y jelly or Astroglide may be used. * If you have RH negative blood and your baby is RH positive, you will receive RHOGAM by injection prior to discharge. The nurse will give you a card to keep with you that has the date and place that you received RHOGAM after delivery. * During your care, you had a Rubella screen done to check for the presence of rubella antibodies in your blood. If your test was negative, you will receive a Rubella vaccine prior to discharge. This vaccine may cause a fever, soreness at the injection site and flu-like symptoms. If these symptoms persist, notify your health care practitioner. is not advised for one month after a Rubella vaccine. * Verbalizes understanding of car seat law as reviewed with patient nursing. * Car Seat hand-out given and reviewed with patient by nursing. * Shaken baby information reviewed with patient by nursing. Call you doctor if: * Heavy bleeding (saturating several pads an hour) or passing clots the size of your fist. * A fever >101 degrees F (38.3 degrees C) on two occasions four hours apart and /or chills. * Unusual pain in the pelvic or vaginal areas. * "Baby Blues" lasting longer than two weeks. If you have any questions or concerns, call your health care practitioner at . FOLLOW UP VISIT: * Please call the office at to schedule a 6 week examination. It is important you keep this appointment. It is important for you to make arrangements for either yearly or twice yearly check-ups thereafter. Current Hospital Diet Patient's current hospital diet: Regular Diet Discharge Diet Recommended Diet: Regular Diet Pending Studies Studies pending at discharge: no Medical Emergencies . Who to Call and When: Medical Emergencies: If at any time you feel your situation is an emergency, please call 911 immediately. . Non-Emergent Contact Non-Emergency issues call your: Primary Care Provider . . "Provider Documentation" section prepared by Annette Mandel. . VTE Core Measure Inpt VTE Proph given/why not?: Treatment not indicated
[2017-05-15] MEDS ORDERED: DIPHTHERIA/TETANUS/PERTUSSIS 0.5 ML SYR/VIAL IM. ONE (09:00)
[2017-05-15 09:40] VITALS: O2SAT 97
[2017-05-15 11:14] VITALS: BP 153/78; PULSE 80; TEMP 37; O2SAT 99
[2017-05-15 16:00] VITALS: BP 129/80; PULSE 76; TEMP 36.7
[2017-05-15 20:10] VITALS: BP 110/71; PULSE 66; TEMP 36.9; O2SAT 99
[2017-05-16] VITALS: BP 103/70; PULSE 76; TEMP 36.9; O2SAT 99
[2017-05-16 03:40] VITALS: BP 122/84; PULSE 77; TEMP 36.7; O2SAT 98
[2017-05-16] MEDS: IBUPROFEN 600 MG TAB PO PRN (03:49)
--- NOTE | 2017-05-16 07:08 | Progress Note ---
Subjective May 16, 2017. Subjective conversation w/ patient, physical exam Ambulation: ambulating normally Voiding: no voiding problems Passing Gas: Yes Diet Tolerance: Regular Diet Lochia: Moderate Feeding Type: Breast Feeding Pain: controlled Review of Systems Constitutional: No problem reported Respiratory: No problem reported Cardiac: No problem reported Breast: No problem reported Abdomen: No problem reported Female : No problem reported Objective Vital Signs Date Time Temp Pulse Resp B/P (MAP) Pulse Ox O2 Delivery O2 Flow Rate FiO2 05/16/17 03:40 36.7 77 18 122/84 (97) 98 Room Air 05/16/17 00:00 Room Air 05/16/17 00:00 36.9 76 16 103/70 (81) 99 Room Air 05/15/17 20:10 36.9 66 16 110/71 (84) 99 Room Air 05/15/17 16:00 Room Air 05/15/17 16:00 36.7 76 20 129/80 (96) Room Air 05/15/17 11:14 37.0 80 20 153/78 (103) 99 Room Air 05/15/17 09:40 97 Room Air 05/15/17 08:00 36.7 80 20 105/71 (82) 05/15/17 08:00 36.5 81 17 105/71 (82) 97 Room Air Physical Exam General Appearance: WELL-APPEARING, NO APPARENT DISTRESS Respiratory/Chest: no respiratory distress Cardiovascular: regular rate, rhythm Abdomen: non tender, soft Fundus: Firm Extremities: normal inspection Assessment and Plan Problem List Medical Problems: (1) Status: Acute (2) with 20 completed weeks gestation Status: Acute (3) Right groin pain Status: Acute (4) RUQ abdominal pain Status: Acute Post- Day#: 2 Continue Routine Care: PPD#2 doing well. Discharge instructions discussed. Office followup 6w.
[2017-05-16 08:30] VITALS: BP 118/69; PULSE 70; TEMP 36.7
[2017-05-16] MEDS: DOCUSATE SODIUM 100 MG CAP PO SCH (08:38)
[2017-05-16] MEDS: PRENATAL VITAMIN TAB PO SCH (08:38)
[2017-05-16] MEDS: ACETAMINOPHEN 325 MG TAB PO PRN (08:41)
[2017-05-16 11:25] VITALS: BP_DIAS 69; PULSE 70; TEMP 36.7
== END 2017-05-16 11:30 | disposition home or self-care (01) | DRG 775 ==
LOC: C.LD 05-14 07:11 → C.OBG 05-14 23:49
PROVIDERS: ADMIT Obstetrics & Gynecology; ATTEND Obstetrics & Gynecology
PROC: 10907ZC Drainage of Amniotic Fluid, Therapeutic from Products of Conception, Via Natural or Artificial Opening (ICD-10-PCS; principal; 2017-05-14)
PROC: 3E033VJ Introduction of Other Hormone into Peripheral Vein, Percutaneous Approach (ICD-10-PCS; principal; 2017-05-14)
PROC: 10E0XZZ Delivery of Products of Conception, External Approach (ICD-10-PCS; principal; 2017-05-14)
DX: O99.824 Streptococcus B carrier state complicating childbirth (principal); Z68.41 Body mass index [BMI] 40.0-44.9, adult; Z37.0 Single live birth; O69.81X0 Labor and delivery complicated by cord around neck, without compression, not applicable or unspecified; O99.214 Obesity complicating childbirth; E66.9 Obesity, unspecified; O99.02 Anemia complicating childbirth; D64.9 Anemia, unspecified; Z3A.39 39 weeks gestation of pregnancy

== ENCOUNTER → 2017-06-24 | Outpatient (CLI) | payer OTHER | END | disposition home or self-care (01) | LOC: C.PAPS 13:39 | PROVIDERS: ATTEND Obstetrics & Gynecology | DX: Z12.4 Encounter for screening for malignant neoplasm of cervix (principal) ==

== ENCOUNTER 2019-12-02 07:28 | Inpatient (IN) ==
[2019-12-02] MEDS ORDERED: OXYTOCIN 30 UNITS/500 ML BAG IV PRN ×3 (08:06→18:48)
[2019-12-02] MEDS ORDERED: PENICILLIN G POTASSIUM 6 MU in DEXTROSE 5% 250 ML IV STA (08:06)
[2019-12-02 08:28] LABS: Hematocrit (blood only) 34.1 % (37-47); Hemoglobin 11.1 g/dL (12.0-16.0); Mean Corpuscular Volume 85.9 fL (80-100); Mean Platelet Volume 9.7 fL (7.4-10.4); Platelet Count 251 K/uL (130-400); RDW Coefficient of Variation 14.4 % (11.5-14.5); RDW Standard Deviation 44.6 fL (36.4-46.3); Red Blood Count 3.97 M/uL (4.2-5.4); White Blood Count 10.41 K/uL (4.8-10.8)
[2019-12-02 08:39] LABS: Mean Corpuscular Hgb Conc 32.6 g/dL (32-36)
[2019-12-02] MEDS: LACTATED RINGER'S 1,000 ML IV PRN ×2 (08:45→15:39)
--- NOTE | 2019-12-02 11:22 | History & Physical Report ---
Date of Service December 02, 2019 Assessment & Plan (1) : Admit to L&D. IVF, EFM/toco, labs. Pitocin. Will plan for AROM when able. Pen G for GBS + History of Present Illness Chief Complaint: IOL Primary Care Provider: JOSE PCP 29yo @ 38 02/28 here for elective IOL. complicated by GBS+, h/o HSV (has been on valtrex), obesity. + movement, no vaginal bleeding, no leaking of fluid, no contractions Allergies Allergy/AdvReac Type Severity Reaction Status Date / Time morphine Allergy Intermediate HIVES Verified 12/02/19 07:19 Home Medications Home Medications Medication Instructions Recorded Confirmed Type PNV cmb#95-ferrous fumarate-FA 1 tab PO HS 04/26/19 12/02/19 History [] valacyclovir 500 mg tablet 500 mg PO DAILY #30 tab 11/09/19 12/02/19 Rx Patient History Medical History (Updated 12/02/19 @ 07:18 by Brittnee Moran RN) Anemia affecting Asthma (Chronic) Depression (Chronic) History of varicella HSV (herpes simplex virus) infection Hx of chlamydia infection Surgical History (Updated 11/09/19 @ 17:03 by Huy Franklin Jr, MD, FACOG) H/O wisdom tooth extraction (Resolved) History of tonsillectomy (Resolved) Social History Preferred Language: Irish Communication Ability: Effective Visual Impairment: No Limitations Hearing Ability: Normal Quality Assurance Test Program Manager Required: No Beliefs That Will Affect Care: None marital status: Current Living Situation: Significant Other Current Living Situation Comment: 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 4 older kids on weekends Other Information That Helps Us Care for You: No Feels Safe at Home: Yes Safety Concerns: Feels Safe At This Time Smoking Status: Never smoker Hx Alcohol Use: No Hx Substance Use: No Review of Systems All systems reviewed & are unremarkable except as noted in HPI & below Physical Exam Physical Exam: FHT Cat 1 [place] no ctx SVE 2-3/50/-3 Constitutional: WD/WN, vitals as above Respiratory: normal respiratory effort, lungs clear to auscultation no respiratory distress Cardiovascular: Rate/Rhythm: regular rate and regular rhythm Gastrointestinal (Abdomen): Inspection/Auscultation: abdomen normal to inspection Percussion/Palpation: abdomen soft; abdomen nontender Gravid. No s/s chorio or abruption. Skin: no rashes, warm and dry Psychiatric: A+Ox3, euthymic affect Results & Data Vital Signs (Past 12 Hours) Vital Signs Temp Pulse Resp BP 12/02/19 11:14 80 111/71 12/02/19 10:16 83 110/72 12/02/19 09:30 18 12/02/19 09:29 84 124/70 12/02/19 08:57 96 H 125/77 12/02/19 07:41 36.4 C L 90 20 134/69 12/02/19 07:39 90 134/69 12/02/19 07:38 36.4 C L 20
[2019-12-02] MEDS: PENICILLIN G POTASSIUM 3 MU in DEXTROSE 5% 100 ML IV PRN ×2 (12:49→16:48)
--- NOTE | 2019-12-02 14:02 | Labor Progress Brief Note ---
Date of Service December 02, 2019 Subjective Feeling ctx. FHT Cat 1. [place] Q 2. Continuing PCN for GBS. Pit @ 17 Results & Data Vital Signs (Past 12 Hours) Vital Signs Temp Pulse Resp BP 12/02/19 13:39 82 20 107/71 12/02/19 12:48 36.7 C 86 108/63 12/02/19 11:47 75 20 110/65 12/02/19 11:14 80 20 111/71 12/02/19 10:16 83 20 110/72 12/02/19 09:30 18 12/02/19 09:29 84 124/70 12/02/19 08:57 96 H 20 125/77 12/02/19 07:41 36.4 C L 90 20 134/69 12/02/19 07:39 90 134/69 12/02/19 07:38 36.4 C L 20
[2019-12-02] MEDS ORDERED: fentaNYL 2MCG/ML ROPIV 1.25MG/ML 100 ML BAG EPI PRN (15:25)
[2019-12-02] MEDS ORDERED: ePHEDrine sulfate 50 MG/ML AMP IV PRN (15:25)
[2019-12-02] MEDS ORDERED: BUPIVACAINE 0.25% 30 ML VIAL ONE (15:25)
[2019-12-02] MEDS ORDERED: NALOXONE HCL 1 MG in SODIUM CHLORIDE 0.9% 1000ML 1,000 ML IV PRN (15:25)
[2019-12-02] MEDS ORDERED: NALOXONE HCL 0.4 MG/1 ML VIAL/CARP IV PRN (15:25)
[2019-12-02] MEDS ORDERED: ONDANSETRON INJ 2 MG/ML 2 ML VIAL IV PRN ×2 (15:25→17:41)
[2019-12-02] MEDS ORDERED: fentaNYL citrate 100 MCG/2 ML VIAL ONE (15:25)
[2019-12-02] MEDS ORDERED: DiphenhydrAMINE HCL 50 MG/ML VIAL IV PRN (15:25)
[2019-12-02] MEDS ORDERED: ePHEDrine sulfate 50 MG/ML AMP ONE (15:25)
[2019-12-02] MEDS ORDERED: fentaNYL 2MCG/ML ROPIV 1.25MG/ML 100 ML BAG EPI ONE (15:25)
--- NOTE | 2019-12-02 15:25 | Anesthesiology Consultation ---
Date of Service December 02, 2019 Assessment & Plan Chart Review Chart Review: Acceptable Risk for Labor Epidural ASA ASA2 Proposed Anesthesia Anesthesia Type: Labor Epidural Risk / Benefits Reviewed With: PT / POA / Parent / Guardian, Accepts Plan and Informed Consent Obtained History Height/Weight Height: 5 ft 7 in Weight: 117.027 kg Allergies Allergy/AdvReac Type Severity Reaction Status Date / Time morphine Allergy Intermediate HIVES Verified 12/02/19 07:19 Medications Home Medications Medication Instructions Recorded Confirmed Last Taken PNV cmb#95-ferrous fumarate-FA 1 tab PO HS 04/26/19 12/02/19 12/02/19 06:30 [] valacyclovir 500 mg tablet 500 mg PO DAILY #30 tab 11/09/19 12/02/19 12/02/19 06:30 Active Medications Generic Name Dose Route Start Last Admin Trade Name Freq PRN Reason Stop Dose Admin Lactated Ringer's 1,000 mls @ 125 mls/hr 12/02/19 08:06 12/02/19 15:52 Lr IV 12/04/19 08:05 125 mls/hr .Q8H PRN Infusion L&D Protocol Protocol Penicillin G Potassium 3 mu/ 106 mls @ 100 mls/hr 12/02/19 08:06 12/02/19 12:49 Dextrose IV 12/12/19 08:05 100 mls/hr Q4H PRN Administration Give until delivery Oxytocin 30 units in 500 mls @ 19 mls/hr 12/02/19 08:06 12/02/19 14:30 Pitocin IV 12/04/19 08:05 1.14 units/hr .Q24H PRN 19 mls/hr Labor Induction/Augmentation Titration Protocol 1.14 UNITS/HR Past Medical History Medical History Anemia affecting Asthma (Chronic) Depression (Chronic) History of varicella HSV (herpes simplex virus) infection Hx of chlamydia infection Past Family History Family History Other Adopted Past Surgical History Surgical History H/O wisdom tooth extraction (Resolved) History of tonsillectomy (Resolved) Social History Smoking Status: Never smoker Hx Alcohol Use: No Hx Substance Use: No substance use type: does not use Physical Exam Vital Signs Last Vital Signs Temp 36.7 C 12/02/19 12:48 Pulse 80 12/02/19 15:55 Resp 20 12/02/19 13:39 BP 105/59 L 12/02/19 15:54 Pulse Ox 96 12/02/19 15:55 Testing Laboratory Results 12/02/19 08:15
--- NOTE | 2019-12-02 15:25 | Labor Progress Brief Note ---
Date of Service December 02, 2019 Subjective Increasing ctx. FHT Cat 1. [place] Q 2. Cervix 4/50/-2. AROM for clear fluid. Desires epidural. Results & Data Vital Signs (Past 12 Hours) Vital Signs Temp Pulse Resp BP 12/02/19 14:33 85 118/74 12/02/19 13:39 82 20 107/71 12/02/19 12:48 36.7 C 86 108/63 12/02/19 11:47 75 20 110/65 12/02/19 11:14 80 20 111/71 12/02/19 10:16 83 20 110/72 12/02/19 09:30 18 12/02/19 09:29 84 124/70 12/02/19 08:57 96 H 20 125/77 12/02/19 07:41 36.4 C L 90 20 134/69 12/02/19 07:39 90 134/69 12/02/19 07:38 36.4 C L 20
--- NOTE | 2019-12-02 18:28 | Delivery Summary ---
Vaginal Delivery Summary Date of Service December 02, 2019 Vaginal Delivery Summary Vaginal Delivery Summary: Pre-delivery diagnoses: 29yo @ 38 4/7, elective induction of labor, h/o HSV, GBS+ Post-delivery diagnoses: same Procedure: spontaneous vaginal delivery Surgeon: Breana Banda DO Complications: none Findings: Viable male . Apgars: 9/9. Weight pending, please see nursery records. On baby - head/trunk/arms, there are small round excoriated areas. Mother has a history of HSV previously, no outbreaks during this . No lesions on maternal genitalia at time of labor, and has been taking valtrex since 36w. These do not look like vesicular lesions, but given their presence and mother's HSV history, will ask on-call combine operator to evaluate baby. Estimated blood loss: 300ml Description of delivery: The patient progressed to complete with epidural anesthesia. Penicillin used throughout labor for GBS+. She then began to push. She spontaneously vaginally delivered a viable from the cephalic presentation. The head delivered in LATOYA position. No nuchal cord noted. The anterior shoulder delivered, followed by the posterior shoulder, followed by the body. The baby was placed on mother's abdomen and a spontaneous cry was heard. Delayed cord clamping was employed, and the cord was doubly clamped and cut. Cord blood was obtained. The placenta was delivered spontaneously intact with a 3-vessel cord. The uterus and vagina were swept of clots and debris. IV pitocin was given. The uterus became firm. The cervix, vagina, and perineum were inspected and no lacerations were noted. Excellent hemostasis was obser gregoria. The mother and baby are recovering in stable and good condition in the room. Sponge and instrument counts were correct x 2. DO JERE Peters
[2019-12-02] MEDS ORDERED: HYDROCORTISONE ACETATE 25 MG SUPP PR PRN (18:48)
[2019-12-02] MEDS ORDERED: ACETAMINOPHEN 325 MG TAB PO PRN (18:48)
[2019-12-02] MEDS ORDERED: BENZOCAINE 20% AER SPR 82.5 GM CAN EXT PRN (18:48)
[2019-12-02] MEDS ORDERED: DIPHTHERIA/TETANUS/PERTUSSIS 0.5 ML SYR/VIAL IM ONE (18:48)
[2019-12-02] MEDS ORDERED: OXYCODONE/ACETAMINOPHEN 5mg/325mg TAB PO PRN (18:48)
[2019-12-02] MEDS ORDERED: SUPERCREAM 0.870% 15 GM JAR EXT PRN (18:48)
[2019-12-02] MEDS ORDERED: bisacodyL 10 MG SUPP PR PRN (18:48)
--- NOTE | 2019-12-02 18:53 | Anesthesia Procedure Note ---
Date of Service December 02, 2019 Anesthesia Post Epidural Note Vital Signs Vital Signs: Temp Pulse Resp BP Pulse Ox 36.7 C 79 20 112/61 99 12/02/19 12:48 12/02/19 18:37 12/02/19 18:37 12/02/19 18:37 12/02/19 17:55 Notes Mental Status: alert / awake / arousable and participated in evaluation Patient Amnestic to Procedure: Yes Nausea / Vomiting: adequately controlled Pain: adequately controlled Airway Patency, RR, SpO2: stable & adequate BP & HR: stable & adequate Hydration State: stable & adequate Anesthetic Complications: no major complications apparent and Pt Satisfied with anesthetic care
[2019-12-02] MEDS: IBUPROFEN 600 MG TAB PO PRN (20:43)
[2019-12-02] MEDS: DOCUSATE SODIUM 100 MG CAP PO SCH (20:45)
[2019-12-03] MEDS: IBUPROFEN 600 MG TAB PO PRN ×3 (05:17→15:48)
--- NOTE | 2019-12-03 06:53 | Obstetrical Progress Note ---
Date of Service December 03, 2019 Assessment & Plan (1) : PPD#1 doing well, continue routine care. Subjective Ambulation: ambulating normally Voiding: no voiding problems Diet Tolerance:: regular diet Lochia:: Moderate Feeding Type:: breast feeding PPD#1 doing well. No concerns. Review of Systems All systems reviewed & are unremarkable except as noted in HPI & below Physical Exam Constitutional WD/WN, vitals as above no acute distress Respiratory normal respiratory effort Cardiovascular Rate/Rhythm: regular rate and regular rhythm Gastrointestinal (Abdomen) Inspection/Auscultation: abdomen normal to inspection; abdomen not distended Percussion/Palpation: abdomen soft Genitourinary OB Exam Abdomen: + fundal height Fundus: + firm; not tender Results & Data Vital Signs (Past 12 Hours) Vital Signs Temp Pulse Pulse Resp BP BP Pulse Ox 12/03/19 05:00 36.8 C 73 17 100/65 95 12/03/19 00:15 36.8 C 76 16 102/68 98 12/02/19 22:00 36.8 C 88 16 107/66 98 12/02/19 20:36 100 H 120/64 12/02/19 20:21 99 H 123/64 12/02/19 20:06 86 115/63 12/02/19 19:36 90 122/60 12/02/19 19:21 71 115/58 L 12/02/19 19:09 71 115/57 L 12/02/19 19:02 74 85/51 L
[2019-12-03 07:18] LABS: Hematocrit (blood only) 31.8 % (37-47); Hemoglobin 10.4 g/dL (12.0-16.0)
[2019-12-03] MEDS ORDERED: PRENATAL VITAMIN 1 TAB PO SCH (08:00)
[2019-12-03] MEDS: DOCUSATE SODIUM 100 MG CAP PO SCH (08:32)
[2019-12-03] MEDS ORDERED: VALACYCLOVIR HCL 500 MG TABLET PO SCH (09:00)
[2019-12-03] MEDS ORDERED: bisacodyL 5 MG TABEC PO SCH (20:00)
== END 2019-12-03 19:20 | disposition home or self-care (01) | DRG 807 ==
LOC: 4S1 07:28 → 4S2 21:39

== ENCOUNTER 2020-11-19 15:57 | Inpatient (IN) ==
[2020-11-19] MEDS ORDERED: LACTATED RINGER'S 1,000 ML IV ONE (17:04)
[2020-11-19 17:35] LABS: Appearance Urine Clear (Clear); Bacteria Urine Automated Negative (Negative); Blood Urine Negative (Negative); Color Urine Orange; Epithelial Cell Urine Auto >30 /lpf (0-5); Glucose Urine UA Negative (Negative); Ketones Urine 4+ (Negative); Leukocyte Esterase Urine Trace (Negative); Nitrite Urine Negative (Negative); Protein Urine 1+ (Negative); RBC Urine Automated 0-4 /hpf (0-4); Specific Gravity Urine 1.026 (1.000-1.030); Urobilinogen Urine Negative (Negative)
[2020-11-19 17:39] LABS: Basophils # (auto) 0.01 K/uL (0-0.2); Basophils % (auto) 0.3 %; Hematocrit (blood only) 32.4 % (37-47); Hemoglobin 10.8 g/dL (12.0-16.0); Immature Granulocytes # (auto) 0.01 K/uL (0.00-0.02); Immature Granulocytes % (auto) 0.3 %; Lymphocytes # (auto) 0.82 K/uL (1.2-3.4); Lymphocytes % (auto) 23.1 %; Mean Corpuscular Hemoglobin 28.8 pg (25-34); Mean Corpuscular Volume 86.4 fL (80-100); Mean Platelet Volume 9.1 fL (7.4-10.4); Monocytes % (auto) 8.5 %; Neutrophils # (auto) 2.41 K/uL (1.4-6.5); Neutrophils % (auto) 67.8 %; Platelet Count 156 K/uL (130-400); RDW Coefficient of Variation 13.5 % (11.5-14.5); RDW Standard Deviation 43.1 fL (36.4-46.3); Red Blood Count 3.75 M/uL (4.2-5.4); White Blood Count 3.55 K/uL (4.8-10.8)
[2020-11-19 17:42] LABS: Bilirubin Urine Negative (Negative); Ictotest Urine Negative (Negative)
[2020-11-19 17:45] LABS: Mean Corpuscular Hgb Conc 33.3 g/dL (32-36)
--- NOTE | 2020-11-19 17:47 | Labor Progress Brief Note ---
Date of Service November 19, 2020 Subjective Patient presented via ER this evening with complaints of CP, SOB with any exertion (up one flight of stairs = SOB), Cough, Loss of taste and smell, and fevers at home. Symptoms first began 11/12 with a headache, then progressed on 11/14 to general malaise, and worsened again on 11/16 with onset of respiratory symptoms. She also noted lower abdominal cramping beginning tonight, therefore was sent up to L&D by the ER without being seen downstairs, due to concern for labor. The patient and FOB were brought to [facility] and placed in a negative pressure room due to symptoms and high suspicion of COVID infection. I am given verbal report that the clinical coordinator diabetes education coordinator right now was asked by the nursing staff and advised to place the FOB in the room with the patient, and the FOB has not left the room. On arrival, the patient stated to the nurse that she had good FM, no LOF and no VB. Nurse Emily Gallegos found the patient's cervix to be 1/50/-2 and FHT to be reactive. The toco was showing contractions Q2-4 irregularly, and these palpated very mild, despite patient rating them a "6 to 7." BOO Gallegos notes that the patient is speaking normally without wincing or evidence of distress during the contraction despite her pain rating. She was noted to have very high ketones on urine dip but no sugar, there is 1+ protein and her BP is normal at 129/75. O2 sats are 95-98 on RA while at rest and pulse is 94. I was given all of the above information by phone while on-call at home; BOO Gallegos called to make me aware of the patient's arrival and provided the above information at that time. It appeared we needed to r/o PTL, but also potentially manage a patient with COVID. I called the ER to ask them if there are labs or studies they might find helpful to make an inpatient vs outpatient decision for a woman with COVID+, so they could all be drawn from the first opportunity, then placed orders for observation, IV hydration, and labs including those requested by ER team, and came into the hospital to see the patient. Review of chart shows that this patient first contacted our office mentioning covid concerns by stating she "was getting tested" on 11/14. We never received word of results of that test, and in fact the patient now confirms she was not tested on that date. She contacted [facility] again on 11/16 asking that [facility] order a test. She was advised to contact her PCP for that purpose but states today she was never tested then either. She relates that she lives in a home with multiple children, her FOB, and the parents of the FOB, and that both grandparents and kids all are symptomatic with COVID, and that they gathered with family for [place]. The FOB denies symptoms while in the room today but also has not been tested. The patient's complaint of lower abdominal cramping is also noted to have been mentioned as far back as early October at routine OB visits. She is a grand multip and has had six full term vaginal deliveries at 39 or greater weeks gestation. On arrival I receive the additional information that the patient has tested COVID+, has large ketones on formal urinalysis, as well as D-Dimer elevated to 1010 (this value was requested by the ER as part of a decision tree for admiss ion, despite awareness that can elevate this value under normal circumstances; apparently severe elevations have been noted as a prognosticator of COVID disease severity). She does appear to the nurse to be having a hard time breathing with any exertion. The cervix was examined by the same nurse as did the first exam, and no change was found after 1+ hour of observation, therefore PTL was ruled out. She is evidently dehydrated and hopefully the IV fluids will help to relax the uterine irritability we are seeing, as the cervix is not changing. The contractions detected by the monitor continue to palpate very mild and are spacing further apart. I went into the room to examine the patient and find her in bed semi-molina's with a surgical mask in place, able to speak in full sentences but taking breaths between sentences. The FOB is at the opposite side of her bed wearing only a neck gaiter; he was provided with a surgical cone mask and asked to wear it. See "exam" for remainder of findings. The patient reports that she tried doing the requested test of marching in place at the bedside to test for exertional hypoxia just a few minutes before I came in, but became short of breath while doing so, although the pulse oximeter stayed at 97% during that test. She then needed to go to the restroom and patient and RN El report clinically evident shortness of breath on her walking to and from the bathroom. I explained the COVID+ test result to patient and FOB. I explained the hospital's policy to the FOB, including that no visitors are allowed in the hospital currently and that even when laboring, a COVID+ patient is not permitted visitors - however, he was already admitted to the negative pressure suite prior to my arrival, and I think the wisest course is to allow him to stay put while her workup is completed. Once a decision is made on the need for inpatient vs outpatient management, he will either be allowed to leave with her upon discharge, or will be asked to leave while she is admitted. Meanwhile he is reminded that he needs to stay within her negative pressure suite, and should ask if he needs something we can bring to them; if he leaves the room he cannot be re-admitted. I explained the test results available to that point, and left, to return when more results were available. I then discussed the case again with Dr. Arias of the ER, who finds the low WBC, ESR, and elevated D-Dimer concerning for possible need to admit the patient. He is willing to receive the patient in the ER, but I am hoping to avoid unnecessary patient movement, and will discuss with hospitalist service directly to see if they feel she requires movement to another area of the hospital. Dr. Tobin Cash returned my call quickly. Though many of her labs are normal or reassuring, and her pulse oximeter readings are good, her clinical SOB / cough and the low white count are concerning to him; he feels she merits overnight admission for observation at the very least. He notes that her symptom onset date of 11/12, as per the patient's given history here padma, puts her at day 7 which is the beginning of the window of most likely decompensation, making her presentation all the more concerning. He was also able to arrange a telemetry negative pressure bed, which he feels would be beneficial for her given the extra risk of . She will remain with us in negative pressure until the final move to her tele bed is ready to occur. The medicine service will also accept her as there are no obstetric issues, though we will continue to provide NST Q-shift during admission. We will ask the FOB to depart as he will not be able to remain with her during her inpatient stay due to hospital policy. The FOB was escorted out via the stairwell nearest the room in order to minimize passage through public areas. Assessment & Plan (1) COVID-19 affecting puerperium: 30yo at 33w1d with respiratory illness symptoms, mild lower abdominal cramping, and COVID+ R/O PTL: The patient's cervix has not changed, and her cramps are likely uterine irritability due to dehydration (secondary to COVID disease with loss of sense of taste and therefore appetite). status is reassuring, and contractions are improving, so no evidence of PTL at this time. COVID: Patient has COVID-19 per rapid test and symptoms and exposure history. Decision to admit was made in consultation with both ER (Hugo) and Medicine (Shreya) teams. This decision was based on the patient's clinical presentation with exertional SOB, cough, decreased WBC count, elevated sed rate, and D-Dimer elevated to a level above what is typically seen in , as well as her worsening condition on day 7, the beginning of the window where decompensation seems most likely to happen in patients who are headed towards severe COVID. She will be moved to a telemetry-capable bed as soon as one is available, meanwhile she is to remain on 4W in negative pressure suite where she has been thus far. She will move to the primary service of Dr. Cash ([facility] in the coming hour). Physical Exam Constitutional: + obese Eyes: PERRL, conjunctivae normal, anicteric sclerae Neck: supple Respiratory: normal respiratory effort and able to speak in complete sentences (while at rest; not able to speak more than 3 words when ambulating); no respiratory distress Auscultation: + diminished lung sounds (bilateral bases) and + crackles; no wheezes Cardiovascular: Rate/Rhythm: regular rate and regular rhythm Extremities: + pedal edema Gastrointestinal (Abdomen): Gravid / AGA, nontender Musculoskeletal: no cyanosis or clubbing, extremities motor strength 5/5 Skin: no rashes, warm and dry Neurologic: patellar DTR's 2+ bilat, sensation intact Psychiatric: A+Ox3, euthymic affect Genitourinary: Speculum/Bimanual Exam: no vaginal bleeding and uterus nontender Manual OB Exam: + amniotic fluid (No leaking evident) OB Exam Monitor Tracing: + external FHT monitor used, + external uterine monitor used and + category I Cervical exam per BOO Gallegos accepted; stable at 1/50/-2 consistent with multiparous status, and not changing over an hour-plus interval. Lymphatic: no cervical or axillary lymphadenopathy Results & Data ([facility]) Vital Signs (Past 12 Hours) Vital Signs Temp Pulse Resp BP Pulse Ox 11/19/20 17:41 95 H 95 11/19/20 17:36 92 H 96 11/19/20 17:31 97 H 98 11/19/20 17:26 96 H 96 11/19/20 17:21 99 H 96 11/19/20 17:14 99.1 F 97 H 20 129/75 96 Laboratory Results Laboratory Results - last 24 hr 11/19/20 11/19/20 11/19/20 16:05 16:05 17:00 WBC RBC Hgb Hct MCV MCH MCHC RDW Std Deviation RDW Coeff of Rosendo Plt Count MPV Immature Gran % (Auto) Neut % (Auto) Lymph % (Auto) [place] % (Auto) Eos % (Auto) Baso % (Auto) Neut # (Auto) Lymph # (Auto) [place] # (Auto) Eos # (Auto) Baso # (Auto) Immature Gran # (Auto) ESR D-Dimer Sodium Potassium Chloride Carbon Dioxide Anion Gap BUN Creatinine Est Cr Clr Drug Dosing Est GFR ( Amer) Est GFR (Non-Af Amer) BUN/Creatinine Ratio Glucose Calcium Ferritin Total Bilirubin AST ALT Alkaline Phosphatase Lactate Dehydrogenase Troponin I Total Protein Albumin Globulin Albumin/Globulin Ratio Urine Color [place] Urine Appearance Clear Urine pH 6.0 Ur Specific [place] 1.026 Urine Protein 1+ H Urine Glucose (UA) Negative Urine Ketones 4+ H Urine Blood Negative Urine Nitrite Negative Urine Bilirubin Negative Urine Urobilinogen Negative Ur Leukocyte Esterase Trace H Urine WBC (Auto) 1-5 Urine RBC (Auto) 0-4 U Hyaline Cast (Auto) 5-10 H U Epithel Cells (Auto) >30 H Urine Bacteria (Auto) Negative COVID-19 Eval Order Covid19 IDNow atMWIC SARS-CoV-2, RNA, NAAT POSITIVE A* 11/19/20 11/19/20 11/19/20 17:28 17:28 17:28 WBC 3.55 L RBC 3.75 L Hgb 10.8 L Hct 32.4 L MCV 86.4 MCH 28.8 MCHC 33.3 RDW Std Deviation 43.1 RDW Coeff of Ros[place] 13.5 Plt Count 156 MPV 9.1 Immature Gran % (Auto) 0.3 Neut % (Auto) 67.8 Lymph % (Auto) 23.1 [place] % (Auto) 8.5 Eos % (Auto) 0.0 Baso % (Auto) 0.3 Neut # (Auto) 2.41 Lymph # (Auto) 0.82 L [place] # (Auto) 0.30 Eos # (Auto) 0.00 Baso # (Auto) 0.01 Immature Gran # (Auto) 0.01 ESR D-Dimer 1010 H* Sodium 138 Potassium 3.3 L Chloride 106 Carbon Dioxide 22 Anion Gap 11.0 BUN 7 Creatinine 0.52 L Est Cr Clr Drug Dosing Not Reportable Est GFR ( Amer) 147.6 Est GFR (Non-Af Amer) 127.3 BUN/Creatinine Ratio 13.6 Glucose 82 Calcium 8.0 L Ferritin 22.9 Total Bilirubin 0.5 AST 17 ALT 12 Alkaline Phosphatase 95 Lactate Dehydrogenase Troponin I < 0.015 Total Protein 6.6 Albumin 2.5 L Globulin 4.1 H Albumin/Globulin Ratio 0.6 L Urine Color Urine Appearance Urine pH Ur Specific [place] Urine Protein Urine Glucose (UA) Urine Ketones Urine Blood Urine Nitrite Urine Bilirubin Urine Urobilinogen Ur Leukocyte Esterase Urine WBC (Auto) Urine RBC (Auto) U Hyaline Cast (Auto) U Epithel Cells (Auto) Urine Bacteria (Auto) COVID-19 Eval Order SARS-CoV-2, RNA, NAAT 11/19/20 11/19/20 17:28 17:28 WBC RBC Hgb Hct MCV MCH MCHC RDW Std Deviation RDW Coeff of Rosendo Plt Count MPV Immature Gran % (Auto) Neut % (Auto) Lymph % (Auto) [place] % (Auto) Eos % (Auto) Baso % (Auto) Neut # (Auto) Lymph # (Auto) [place] # (Auto) Eos # (Auto) Baso # (Auto) Immature Gran # (Auto) ESR 29 H D-Dimer Sodium Potassium Chloride Carbon Dioxide Anion Gap BUN Creatinine Est Cr Clr Drug Dosing Est GFR ( Amer) Est GFR (Non-Af Amer) BUN/Creatinine Ratio Glucose Calcium Ferritin Total Bilirubin AST ALT Alkaline Phosphatase Lactate Dehydrogenase 187 Troponin I Total Protein Albumin Globulin Albumin/Globulin Ratio Urine Color Urine Appearance Urine pH Ur Specific [place] Urine Protein Urine Glucose (UA) Urine Ketones Urine Blood Urine Nitrite Urine Bilirubin Urine Urobilinogen Ur Leukocyte Esterase Urine WBC (Auto) Urine RBC (Auto) U Hyaline Cast (Auto) U Epithel Cells (Auto) Urine Bacteria (Auto) COVID-19 Eval Order SARS-CoV-2, RNA, NAAT Coding Level of Care Code 00941 OBS Care - Level 3 Diagnoses COVID-19 affecting puerperium O98.53; U07.1
[2020-11-19 17:52] LABS: D Dimer 1010 ug/L FEU (0-500)
[2020-11-19 17:57] LABS: Alanine Aminotransferase 12 U/L (12-78); Albumin Level 2.5 gm/dl (3.4-5.0); Aspartate Aminotransferase 17 U/L (15-37); BUN Creatinine Ratio 13.6 (10-20); Blood Urea Nitrogen 7 mg/dl (7-18); Carbon Dioxide 22 mmol/L (21-32); Chloride 106 mmol/L (98-107); Est GFR (African American) 147.6; Est GFR (Non-African American) 127.3; Glucose 82 mg/dl (70-99); Potassium 3.3 mmol/L (3.5-5.1); Sodium 138 mmol/L (136-145)
[2020-11-19 18:02] LABS: Albumin Globulin Ratio 0.6 (0.9-2); Alkaline Phosphatase 95 U/L (45-117); Bilirubin,Total 0.5 mg/dl (0.2-1); Ferritin 22.9 ng/ml (8-388); Globulin 4.1 gm/dl (2.5-4.0); Total Protein 6.6 gm/dl (6.4-8.2); Troponin I < 0.015 ng/ml (0-0.045)
--- NOTE | 2020-11-19 19:04 | XRay Report ---
XR chest 1V portable CLINICAL HISTORY: COVID, SOB, Cough COMPARISON STUDY: 05/14/2015 FINDINGS: The heart is the upper limits of normal in size. There is no failure. There are subtle left basilar airspace opacity suspicious for a pneumonitis. There are no significant pleural effusions.[ IMPRESSION: Subtle left basilar airspace opacity suspicious for a pneumonitis. ACT 112: Negative or not required by law. Electronically signed by: Al Nguyen M.D. 11/19/2020 7:02 PM
--- NOTE | 2020-11-19 20:15 | History & Physical Report ---
Date of Service November 19, 2020 Assessment & Plan (1) COVID-19 affecting puerperium: Nadine Jones is a woman with no significant past medical history who is here for COVID 19 infection and concern for pre term labor COVID 19 infection in 33 weeks 1 day , normal cervical exam and NST no evidence of labor Patient tells me contractions and cramping have been occuring for almost a month now COVID symptoms for one week, patient with mild symptoms, CXR mostly clear possible left lower lobe pneumonitis procalcitonin ordered Elevated D Dimer appears to be within 2 standard deviations of the normal for a third trimester woman vital signs remain stable. no need for any treatment at this point but as patient may be slightly dehydrated and has been subjectively short of breath we will give IV fluids and monitor overnight for any worsening in her respiratory status OB consulted for NST's as needed Hypokalemia Mild ordered oral potassium supplementation HSV infection Continuing valtrex NOrmal Continuing vitamin DVT PPx: SCD's and ambulation F/E/N: REgular Obstetric diet Dispo: Observe overnight for any worsening symptoms FUll Code (2) : (3) HSV (herpes simplex virus) infection: Admission and Anticipated Discharge Date Admission Date: November 19, 2020 History of Present Illness Chief Complaint: Shortness of Breath Primary Care Provider: NO PCP Nadine Jones is a 30 year old woman who is 33 weeks 1 day who presented to ED with shortness of breath on exertion and abdominal cramping. She first noticed shortness of breath beginning about a week ago and has had similar abdominal cramping for about a month. In L and D her vitals were found to be WNL even on exertional walking though she was subjectively very short of breath. Patient was evaluated by Lna Dr. Mandel who performed an NST that was reassuring, did a pelvic exam without cervical change and felt that patient is not in pre term labor. Labwork was obtained including a WBC count of 3.55, a hemoglobin of 10.8, an "elevated" D Dimer of 1010 though in middle two standard deviations for third trimester , patient was slightly hypokalemic at 3.3, normal liver function and kidney function. Urine with with 1+ protein, 4+ ketones, trace leuk esterase and >20 epithelial cells. Chest X ray mostly clear with some evidence of possible pneumonitis in left lower lobe. Decision was made in conjunction with daytime physicians to admit patient for monitoring overnight. At present she is resting comfortably in bed able to speak easily in full sentences with non productive cough Oxygenating at 97 % on room air. On review of systems patient endorses no fevers, no chills, has had body aches and muscle aches and some sweating, denies chest pain, but does have some mild discomfort on full inspiration. Exertional dyspnea, going up her single flight of stairs or even to the bathroom. Has lost her sense of taste and smell and has very poor appetite and has felt fatigued. No skin rashes, no other symptoms. Non smoker, non drinker, Lives at home with his parents and two of her children currently. Everyone has been symptomatic. No other significant Past medical history. Allergies Allergy/AdvReac Type Severity Reaction Status Date / Time morphine Allergy Intermediate HIVES Verified 10/31/20 10:26 Home Medications Medication Instructions Recorded Confirmed Type valacyclovir [Valtrex] 500 mg PO QAM 02/04/20 11/19/20 History prenat.vits,darlin,[id number] 1 tab PO DAILY 05/24/20 11/19/20 History albuterol sulfate 2 inh INHALATION Q4H PRN #18 g 11/20/20 Rx Past Med/Surg History Medical History (Updated 11/19/20 @ 19:14 by Annette Mandel MD) Asthma Depression GBS (group B Streptococcus carrier), +RV culture, currently History of varicella WHEN YOUNGER HSV (herpes simplex virus) infection TAKES VALTREX Hx of chlamydia infection A LONG TIME AGO AND NO PROBLEMS SINCE Normal in multigravida, antepartum Surgical History H/O wisdom tooth extraction History of tonsillectomy Family History Other Adopted Social History (Updated 05/24/20 @ 09:04 by Nilsa Fung) Smoking Status: Never smoker Second Hand Exposure: No; Hx Alcohol Use: No Hx Substance Use: No Preferred Language: [place] Communication Ability: Effective Visual Impairment: No Limitations Hearing Ability: Normal Shortage Worker Required: No Beliefs That Will Affect Care: None marital status: marital status details: Brodie Bernabe ([phone] Current Living Situation: Significant Other Current Living Situation Comment: Pt lives with and 2 sons. She shares custody of 4 other sons with h current occupational status: unemployed Feels Safe at Home: Yes Assistive Devices: None Review of Systems Review of Systems: All systems reviewed & are unremarkable except as noted in HPI & below Physical Exam Constitutional: well developed, well nourished, + obese, cooperative and comfortable; no acute distress and no altered mental status Gravid uterus Eyes: PERRL, conjunctivae normal, anicteric sclerae ENMT: external ear and nose normal, oropharynx normal Respiratory: normal respiratory effort, lungs clear to auscultation Cardiovascular: RRR, no murmur, no edema Gastrointestinal (Abdomen): Gravid uterus approximately 30 cm from pubic symphysis, abdomen soft non tender striae present Skin: no rashes, warm and dry Results & Data Results & Data ([facility]) Vital Signs (Past 12 Hours) Vital Signs Temp Pulse Resp BP Pulse Ox 11/19/20 20:12 90 97 11/19/20 20:07 92 H 96 11/19/20 20:02 92 H 97 11/19/20 19:57 95 H 96 11/19/20 19:52 98 H 97 11/19/20 19:42 87 97 11/19/20 19:37 89 98 11/19/20 19:32 90 97 11/19/20 19:27 94 H 97 11/19/20 19:22 90 97 11/19/20 19:20 86 112/67 11/19/20 19:17 93 H 96 11/19/20 19:12 93 H 98 11/19/20 19:07 89 96 11/19/20 19:02 97 H 99 11/19/20 18:57 91 H 97 11/19/20 18:52 98 H 98 11/19/20 18:47 93 H 98 11/19/20 18:42 92 H 97 11/19/20 18:37 93 H 97 11/19/20 18:32 91 H 99 11/19/20 18:27 96 H 98 11/19/20 18:22 94 H 98 11/19/20 18:17 89 98 11/19/20 18:12 87 97 11/19/20 18:07 94 H 98 11/19/20 18:02 99 H 98 11/19/20 17:56 108 H 99 11/19/20 17:51 94 H 97 11/19/20 17:46 93 H 96 11/19/20 17:41 95 H 95 11/19/20 17:36 92 H 96 11/19/20 17:31 97 H 98 11/19/20 17:26 96 H 96 11/19/20 17:21 99 H 96 11/19/20 17:14 37.3 C 97 H 20 129/75 96 Code Status & VTE Plan VTE Prophylaxis Plan VTE Prophylaxis will be ordered: Yes Supervising Physician Co-Signing Physician Notes Attending addendum: I have physically seen this patient, have supervised the medical residents activities, and agree with the H&P unless as otherwise noted. Assessment and Plan: COVID-19 infection and 33-week female- Degree of COVID-19 symptoms mild. Elevated D-dimer to be expected at this level during Would not order CTA chest for PE unless became more symptomatic. Continue to monitor on telemetry overnight. IV fluids as noted Mild hypokalemia- Oral supplementation Repeat in a.m. Remainder of orders and notations as noted Resident Activity Tracking Resident Involvement: Resident Care Provided Care Provided: Adult Hospital Medicine
[2020-11-19] MEDS ORDERED: ONDANSETRON INJ 2 MG/ML 2 ML VIAL IV PRN (20:43)
[2020-11-19] MEDS ORDERED: ACETAMINOPHEN 325 MG TAB PO PRN (20:43)
[2020-11-19] MEDS ORDERED: POLYETHYLENE (MIRALAX) 17 GM PACK PO PRN (20:43)
[2020-11-19] MEDS: LACTATED RINGER'S 1,000 ML IV SCH (21:05)
[2020-11-19] MEDS: POTASSIUM CHLORIDE CRTAB 20 MEQ TABCR PO SCH (21:20)
[2020-11-20] MEDS: LACTATED RINGER'S 1,000 ML IV SCH (06:21)
[2020-11-20] MEDS ORDERED: PRENATAL VITAMIN 1 TAB PO SCH (09:00)
[2020-11-20] MEDS ORDERED: valACYclovir HCL 500 MG TABLET PO SCH (09:00)
[2020-11-20] MEDS: POTASSIUM CHLORIDE CRTAB 20 MEQ TABCR PO SCH (09:14)
--- NOTE | 2020-11-20 14:16 | Discharge Summary ---
Date of Service November 20, 2020 Admission HPI Per Admitting Provider Nadine Jones is a 30 year old woman who is 33 weeks 1 day who presented to ED with shortness of breath on exertion and abdominal cramping. She first noticed shortness of breath beginning about a week ago and has had similar abdominal cramping for about a month. In L and D her vitals were found to be WNL even on exertional walking though she was subjectively very short of breath. Patient was evaluated by Manufacturing Advisor Dr. Mandel who performed an NST that was reassuring, did a pelvic exam without cervical change and felt that patient is not in pre term labor. Labwork was obtained including a WBC count of 3.55, a hemoglobin of 10.8, an "elevated" D Dimer of 1010 though in middle two standard deviations for third trimester , patient was slightly hypokalemic at 3.3, normal liver function and kidney function. Urine with with 1+ protein, 4+ ketones, trace leuk esterase and >20 epithelial cells. Chest X ray mostly clear with some evidence of possible pneumonitis in left lower lobe. Decision was made in conjunction with daytime physicians to admit patient for monitoring overnight. At present she is resting comfortably in bed able to speak easily in full sentences with non productive cough Oxygenating at 97 % on room air. On review of systems patient endorses no fevers, no chills, has had body aches and muscle aches and some sweating, denies chest pain, but does have some mild discomfort on full inspiration. Exertional dyspnea, going up her single flight of stairs or even to the bathroom. Has lost her sense of taste and smell and has very poor appetite and has felt fatigued. No skin rashes, no other symptoms. Non smoker, non drinker, Lives at home with his parents and two of her children currently. Everyone has been symptomatic. No other significant Past medical history. Principal Diagnosis COVID-19 Pneumonia, Shortness of breath, third trimester Discharge Exam Constitutional WD/WN, vitals as above + obese Eyes + anicteric sclerae ENMT external ear and nose normal, oropharynx normal Neck trachea midline, no thyromegaly Respiratory normal respiratory effort, lungs clear to auscultation Cardiovascular RRR, no murmur, no edema Chest (Breasts) Chest: normal inspection of chest Gastrointestinal (Abdomen) gravid Musculoskeletal Extremities: extremities normal to inspection; no cyanosis and no clubbing Skin no rashes, warm and dry Neurologic moves all extremities and awake; no focal motor deficits Psychiatric A+Ox3, euthymic affect Lymphatic no lymphedema Discharge Data Allergies Allergy/AdvReac Type Severity Reaction Status Date / Time morphine Allergy Intermediate HIVES Verified 10/31/20 10:26 Consultations 11/19/20 18:31 Consult Hospitalist Stat 11/19/20 20:47 Consult Obstetrics Routine Ordered Studies CXR Hospital Course (1) COVID-19 affecting puerperium: Nadine Jones is a woman with past medical history of asthma, HSV, who is here for COVID 19 infection and concern for pre term labor, with dyspnea on exertion. COVID 19 infection in 33+2 wga with PTL ruled out by OB COVID symptoms for one week, patient with mild symptoms, CXR mostly clear possible left lower lobe pneumonitis procalcitonin ordered and negative Elevated D Dimer appears to be within 2 standard deviations of the normal for a third trimester woman vital signs remain stable. Was monitored overnight and POx normal, dyspnea improved after being given IVFs VSS Send out with albuterol inhaler prn cough or SOB given h/o asthma No steroids indicated Hypokalemia Mild-replaced HSV infection Continuing valtrex NOrmal Continuing vitamin OB seen and cleared from their standpoint DVT PPx: SCD's and ambulation Dispo: dc to home, is improved Quarantine for 14 days total from start of symptoms FUll Code (2) : (3) HSV (herpes simplex virus) infection: Total Time Total Time Spent Total Time Spent (In Minutes): 35 min Total Time Includes: Examination of the Patient, Discharge Planning and Medication Reconciliation Discharge Plan Discharge Items Patient Disposition: Home - Self-Care Reason For Visit: COVID IN 3RD TRIMESTER OF Discharge Diagnosis: COVID-19 Pneumonia, Shortness of breath Condition on Discharge: Good Activity: As commented below Bathing: No limitations Exercise/Sports: Gradually increase as tolerated Non-emergency contact: Primary Care Provider and Auditor Supervisor Call non-emergency contact if: you have any medication questions and your symptoms worsen Follow-up/Referrals: Annette Mandel MD [Physician] - (Follow up with OB for your regularly scheduled OB visit ) PCP,NO [Primary Care Provider] - (Follow up with your PCP within 1-2 weeks) Diet: Regular Addtl Attending Provider Instructions: Continue albuterol inhaler as needed for shortness of breath or cough. Remain quarantined x 1 more week. Home Isolation COVID-19 Instructions The following information about Home Isolation is from the CDC Website: https://www.cdc.gov/coronavirus/2019-ncov/hcp/fixarbod-wwybixx-jpxwyk.html Stay home except to get medical care People who are mildly ill with COVID-19 are able to isolate at home during their illness. You should restrict activities outside your home, except for getting medical care. Do not go to work, school, or public areas. Avoid using public transportation, ride-sharing, or taxis. Separate yourself from other people and animals in your home People: As much as possible, you should stay in a specific room and away from other people in your home. Also, you should use a separate bathroom, if available. Animals: You should restrict contact with pets and other animals while you are sick with COVID-19, just like you would around other people. Although there have not been reports of pets or other animals becoming sick with COVID-19, it is still recommended that people sick with COVID-19 limit contact with animals until more information is known about the virus. When possible, have another member of your household care for your animals while you are sick. If you are sick with COVID-19, avoid contact with your pet, including petting, snuggling, being kissed or licked, and sharing food. If you must care for your pet or be around animals while you are sick, wash your hands before and after you interact with pets and wear a face mask. Call ahead before visiting your doctor If you have a medical appointment, call the healthcare provider and tell them that you have or may have COVID-19. This will help the healthcare providers office take steps to keep other people from getting infected or exposed. Wear a face mask You should wear a face mask when you are around other people (e.g., sharing a room or vehicle) or pets and before you enter a healthcare providers office. If you are not able to wear a face mask (for example, because it causes trouble breathing), then people who live with you should not stay in the same room with you, or they should wear a face mask if they enter your room. Cover your coughs and sneezes Cover your mouth and nose with a tissue when you cough or sneeze. Throw used tissues in a lined trash can. Immediately wash your hands with soap and water for at least 20 seconds or, if soap and water are not available, clean your hands with an alcohol-based hand ice skating teacher that contains at least 60% alcohol. Clean your hands often Wash your hands often with soap and water for at least 20 seconds, especially after blowing your nose, coughing, or sneezing; going to the bathroom; and before eating or preparing food. If soap and water are not readily available, use an alcohol-based hand ice skating teacher with at least 60% alcohol, covering all surfaces of your hands and rubbing them together until they feel dry. Soap and water are the best option if hands are visibly dirty. Avoid touching your eyes, nose, and mouth with unwashed hands. Avoid sharing personal household items You should not share dishes, drinking glasses, cups, eating utensils, towels, or bedding with other people or pets in your home. After using these items, they should be washed thoroughly with soap and water. Clean all high-touch surfaces everyday High touch surfaces include counters, tabletops, doorknobs, bathroom fixtures, toilets, phones, keyboards, tablets, and bedside tables. Also, clean any surfaces that may have blood, stool, or body fluids on them. Use a household cleaning spray or wipe, according to the label instructions. Labels contain instructions for safe and effective use of the cleaning product including precautions you should take when applying the product, such as wearing gloves and making sure you have good ventilation during use of the product. Monitor your symptoms Seek prompt medical attention if your illness is worsening (e.g., difficulty breathing).Beforeseeking care, call your healthcare provider and tell them that you have, or are being evaluated for, COVID-19. Put on a face mask before you enter the facility. These steps will help the healthcare providers office to keep other people in the office or waiting room from getting infected or exposed. Ask your healthcare provider to call the local or [place] [facility] health department. Persons who are placed under active monitoring or facilitated self- monitoring should follow instructions provided by their local health department or occupational health professionals, as appropriate. When working with your local health department check their available hours. If you have a medical emergency and need to call 911, notify the dispatch personnel that you have, or are being evaluated for COVID-19. If possible, put on a face mask before emergency medical services arrive. Discontinuing home isolation Patients with confirmed COVID-19 should remain under home isolation precautions until the risk of secondary transmission to others is thought to be low. The decision to discontinue home isolation precautions should be made on a dewx-iv-gogs basis, in consultation with healthcare providers and [place] [facility] and local health departments. Pending Studies at Discharge: No Stand-Alone Forms: [facility] Medications and DC Order Prescriptions: New albuterol sulfate 90 mcg/actuation HFA aerosol inhaler 2 inh inhalation Q4H PRN (Reason: shortness of breath or wheezing) Qty: 18 RF: 0 Continued prenat.vits,darlin,[id number] Tablet 1 tab PO DAILY RF: 0 valacyclovir [Valtrex] 500 mg tablet 500 mg PO QAM RF: 0 Discharge Orders: Discharge Order (Routine); Ordered 11/20/20 Ordered By: Veena Dennis Admission Data Admit Date/Time: 11/19/20 19:27 Attending Provider: Veena Dennis Admit Provider: Annette Mandel Primary Care Provider: PCP,NO Other Providers: Tobin Cash ; Annette Mandel Coding Level of Care Code D/C Day Management >30 mins Diagnoses COVID-19 affecting puerperium O98.53; U07.1 Z34.90 HSV (herpes simplex virus) infection B00.9
--- NOTE | 2020-11-20 14:47 | Communication Note ---
Date of Service: November 20, 2020 nst reactive. [employer] Miscellaneous Codes Misx Procedure Codes 79827 NST
--- NOTE | 2020-11-22 10:54 | Billing Data ---
Date of Service November 22, 2020 Coding Level of Care Code 61906 OBS Care - Level 2
== END 2020-11-20 15:37 | disposition home or self-care (01) | DRG 831 ==
LOC: OPB 15:57 → 4W 15:58 → SUATTDRO 19:27 → 2N 20:26

== ENCOUNTER 2021-01-01 07:29 | Inpatient (IN) ==
[2021-01-01] MEDS ORDERED: OXYTOCIN 30 UNITS/500 ML BAG IV PRN ×3 (07:46→16:29)
--- NOTE | 2021-01-01 07:52 | History & Physical Report ---
Date of Service January 01, 2021 Assessment & Plan (1) Supervision of with grand multiparity, antepartum: Admit to L&D. EFM/toco, labs, IV. Start PCN for GBS+. Will plan for pitocin, eventual AROM if needed. Admission and Anticipated Discharge Date Admission Date: January 01, 2021 History of Present Illness Chief Complaint: IOL Primary Care Provider: JOSE PCP 30yo @ 39 12/31 here for IOL. + movement. No vaginal bleeding, leaking fluid, ctx. complications/plans: COVID+ 10/2020 GBS Positive *treat in labor* Short interval--delivered 11/2019 Grand Multip HSV--valtrex at 36 weeks Flu shot given 08/22/20 SB Allergies Allergy/AdvReac Type Severity Reaction Status Date / Time morphine Allergy Intermediate HIVES Verified 12/29/20 08:54 Home Medications Medication Instructions Recorded Confirmed Type prenat.vits,darlin,[id number]-tmpre 1 tab PO DAILY 05/24/20 12/29/20 History albuterol sulfate 2 inh INHALATION Q4H PRN #18 g 11/20/20 12/29/20 Rx valacyclovir 500 mg tablet 500 mg PO QAM #30 tab 11/29/20 12/29/20 Rx Patient History Medical History Asthma Depression GBS (group B Streptococcus carrier), +RV culture, currently History of varicella WHEN YOUNGER HSV (herpes simplex virus) infection TAKES VALTREX Hx of chlamydia infection A LONG TIME AGO AND NO PROBLEMS SINCE Normal in multigravida, antepartum Surgical History H/O wisdom tooth extraction History of tonsillectomy Family History Other Adopted Social History Smoking Status: Never smoker Second Hand Exposure: No; Hx Alcohol Use: No Hx Substance Use: No Preferred Language: Portuguese Communication Ability: Effective Visual Impairment: No Limitations Hearing Ability: Normal Cheese Tester Required: No Beliefs That Will Affect Care: None marital status: marital status details: Brodie Bernabe (37) [phone] Current Living Situation: Spouse Current Living Situation Comment: Pt lives with and 2 sons. She shares custody of 4 other sons with h current occupational status: unemployed Feels Safe at Home: Yes Assistive Devices: None Review of Systems All systems reviewed & are unremarkable except as noted in HPI & below Physical Exam Constitutional: WD/WN, vitals as above Respiratory: normal respiratory effort, lungs clear to auscultation no respiratory distress Cardiovascular: Rate/Rhythm: regular rate and regular rhythm Gastrointestinal (Abdomen): Inspection/Auscultation: abdomen normal to inspection Percussion/Palpation: abdomen soft; abdomen nontender Gravid. No s/s chorio or abruption. Skin: no rashes, warm and dry Psychiatric: A+Ox3, euthymic affect Results & Data ([facility]) Vital Signs (Past 12 Hours) Vital Signs Pulse BP 01/01/21 07:40 109 H 128/61 Monitoring External Monitor FHT Cat 1 [place] none Coding Level of Care Code None Diagnoses Supervision of with grand multiparity, antepartum O09.40
[2021-01-01] MEDS ORDERED: PENICILLIN G POTASSIUM 6 MU in DEXTROSE 5% 250 ML IV ONE (08:15)
[2021-01-01 08:18] LABS: Hemoglobin 11.5 g/dL (12.0-16.0); Mean Corpuscular Hemoglobin 28.1 pg (25-34); Mean Corpuscular Hgb Conc 32.9 g/dL (32-36); Mean Corpuscular Volume 85.6 fL (80-100); Mean Platelet Volume 10.1 fL (7.4-10.4); Platelet Count 296 K/uL (130-400); RDW Coefficient of Variation 14.4 % (11.5-14.5); RDW Standard Deviation 44.7 fL (36.4-46.3); Red Blood Count 4.09 M/uL (4.2-5.4)
[2021-01-01] MEDS: LACTATED RINGER'S 1,000 ML IV PRN ×3 (08:20→13:22)
[2021-01-01] MEDS ORDERED: ONDANSETRON INJ 2 MG/ML 2 ML VIAL IV PRN ×2 (11:02→12:39)
[2021-01-01] MEDS ORDERED: ONDANSETRON INJ 2 MG/ML 2 ML VIAL ONE (11:03)
[2021-01-01] MEDS ORDERED: ePHEDrine sulfate 50 MG/ML AMP ONE (11:55)
[2021-01-01] MEDS ORDERED: SODIUM CHLORIDE 0.9% INJ 10 ML VIAL ONE (11:55)
[2021-01-01] MEDS ORDERED: BUPIVACAINE 0.25% 30 ML VIAL ONE (11:55)
[2021-01-01] MEDS ORDERED: fentaNYL citrate 100 MCG/2 ML VIAL ONE (11:56)
[2021-01-01] MEDS ORDERED: fentaNYL 2MCG/ML ROPIVACAINE 1.25MG/ML 100 ML BAG EPI ONE (11:57)
[2021-01-01] MEDS: PENICILLIN G POTASSIUM 3 MU in DEXTROSE 5% 100 ML IV PRN ×2 (12:10→15:46)
[2021-01-01] MEDS ORDERED: fentaNYL 2MCG/ML ROPIVACAINE 1.25MG/ML 100 ML BAG EPI PRN (12:39)
[2021-01-01] MEDS ORDERED: NALOXONE HCL 1 MG in SODIUM CHLORIDE 0.9% 1000ML 1,000 ML IV PRN (12:39)
[2021-01-01] MEDS ORDERED: ePHEDrine sulfate 50 MG/ML AMP IV PRN (12:39)
[2021-01-01] MEDS ORDERED: diphenhydrAMINE 50 MG/ML VIAL IV PRN (12:39)
[2021-01-01] MEDS ORDERED: NALOXONE HCL 0.4 MG/1 ML VIAL/CARP IV PRN (12:39)
--- NOTE | 2021-01-01 12:41 | Anesthesiology Consultation ---
Date of Service January 01, 2021 History Height/Weight Height: 5 ft 7 in Weight: 123.831 kg Allergies Allergy/AdvReac Type Severity Reaction Status Date / Time morphine Allergy Intermediate HIVES Verified 12/29/20 08:54 Medications Home Medications Medication Instructions Recorded Confirmed Last Taken prenat.vits,darlin,hmx-jnqw-owcwx 1 tab PO DAILY 05/24/20 01/01/21 01/01/21 07:00 albuterol sulfate 2 inh INHALATION Q4H PRN #18 g 11/20/20 01/01/21 11/27/20 valacyclovir 500 mg tablet 500 mg PO QAM #30 tab 11/29/20 01/01/21 01/01/21 07:00 Active Medications Generic Name Dose Route Start Last Admin Trade Name Freq PRN Reason Stop Dose Admin Penicillin G Potassium 3 mu/ 106 mls @ 100 mls/hr 01/01/21 07:46 01/01/21 12:10 Dextrose IV 01/11/21 07:45 100 mls/hr Q4H PRN Administration Give until delivery Oxytocin 30 units in 500 mls @ 9 mls/hr 01/01/21 07:46 01/01/21 12:38 Pitocin IV 01/03/21 07:45 0.54 units/hr .Q24H PRN 9 mls/hr Labor Induction/Augmentation Titration Protocol 0.54 UNITS/HR Lactated Ringer's 1,000 mls @ 125 mls/hr 01/01/21 07:46 01/01/21 12:10 Lr IV 01/03/21 07:45 999 mls/hr .Q8H PRN Administration L&D Protocol Protocol NPO Date Last Intake of Fluids: 01/01/21 Time Last Intake of Fluids: 10:00 Date Last Intake of Solids: 01/01/21 Time Last Intake of Solids: 07:00 Past Medical History Medical History Asthma Depression GBS (group B Streptococcus carrier), +RV culture, currently History of varicella WHEN YOUNGER HSV (herpes simplex virus) infection TAKES VALTREX Hx of chlamydia infection A LONG TIME AGO AND NO PROBLEMS SINCE Normal in multigravida, antepartum Exercise / Class Metabolic Activity II 4-5 Yardwork/Stairs/Walk up hill Past Family History Family History Other Adopted Past Surgical History Surgical History H/O wisdom tooth extraction History of tonsillectomy Past Anesthesia History No Hx of Anesthesia Complications and No Family Hx of Anesthesia Complications History of PONV No Hx of PONV and No Hx of Motion Sickness Social History Smoking Status: Never smoker Do You Dip or Chew Tobacco: No Hx Alcohol Use: No Hx Substance Use: No substance use type: does not use Physical Exam Vital Signs Last Vital Signs Temp 36.5 C 01/01/21 12:10 Pulse 78 01/01/21 12:37 Resp 16 01/01/21 12:10 BP 128/76 01/01/21 12:35 Pulse Ox 99 01/01/21 12:37 Testing Laboratory Results 01/01/21 08:00
--- NOTE | 2021-01-01 13:49 | Labor Progress Brief Note ---
Date of Service January 01, 2021 Subjective Comfortable with epidural. FHT Cat 1 [place] Q 2 SVE /-2 AROM clear fluid. Anticipate . Assessment & Plan Admission and Anticipated Discharge Date Admission Date: January 01, 2021 Results & Data ([facility]) Vital Signs (Past 12 Hours) Vital Signs Temp Pulse Resp BP Pulse Ox 01/01/21 13:47 90 99 01/01/21 13:42 89 99 01/01/21 13:37 83 99 01/01/21 13:34 78 113/61 01/01/21 13:32 78 98 01/01/21 13:27 92 H 97 01/01/21 13:22 72 96 01/01/21 13:19 74 103/63 01/01/21 13:17 82 96 01/01/21 13:13 86 91 01/01/21 13:12 86 98 01/01/21 13:07 74 97 01/01/21 13:02 103 H 98 01/01/21 13:01 85 105/59 L 01/01/21 12:59 79 106/56 L 01/01/21 12:57 88 101/63 97 01/01/21 12:56 87 108/58 L 01/01/21 12:52 77 120/71 98 01/01/21 12:49 97 H 92 01/01/21 12:48 75 120/74 01/01/21 12:47 77 100 01/01/21 12:42 67 98 01/01/21 12:41 70 123/75 01/01/21 12:37 78 99 01/01/21 12:35 73 128/76 01/01/21 12:33 70 124/79 01/01/21 12:32 66 98 01/01/21 12:27 76 97 01/01/21 12:22 68 97 01/01/21 12:21 70 121/81 01/01/21 12:18 71 118/77 01/01/21 12:17 71 99 01/01/21 12:12 79 98 01/01/21 12:10 36.5 C 16 01/01/21 12:07 69 98 01/01/21 12:04 76 112/73 01/01/21 11:34 81 111/70 01/01/21 11:18 79 117/70 01/01/21 11:03 65 119/77 01/01/21 11:00 36.5 C 18 01/01/21 10:48 76 113/77 01/01/21 10:33 82 115/76 01/01/21 10:18 82 117/73 01/01/21 10:03 88 112/69 01/01/21 09:48 94 H 121/73 01/01/21 09:34 88 113/69 01/01/21 09:19 88 111/71 01/01/21 09:04 90 105/63 01/01/21 08:49 99 H 119/60 01/01/21 08:00 36.4 C L 16 01/01/21 07:56 36.4 C L 16 01/01/21 07:40 109 H 128/61 Coding Level of Care Code None
--- NOTE | 2021-01-01 16:19 | Delivery Summary ---
Vaginal Delivery Summary Date of Service January 01, 2021 Vaginal Delivery Summary [facility] Vaginal Delivery Summary: Pre-delivery diagnoses: 30yo @ 39 2/7, grand multip, HSV (no lesions) Post-delivery diagnoses: same Procedure: spontaneus vaginal delivery Surgeon: Breana Banda DO Complications: none Findings: Viable male . Apgars: 8/9 . Weight pending, please see nursery records. Estimated blood loss: 200ml Description of delivery: The patient progressed to complete with epidural anesthesia. She then began to push. She spontaneously vaginally delivered a viable from the cephalic presentation. The head delivered in LATOYA position. The anterior shoulder delivered, followed by the posterior shoulder, followed by the body. The baby was placed on mother's abdomen and a spontaneous cry was heard. Delayed cord clamping was employed, and the cord was doubly clamped and cut. Cord blood was obtained. The placenta was delivered spontaneously intact with a 3-vessel cord. The uterus and vagina were swept of clots and debris. IV pitocin was given. The uterus became firm. The cervix, vagina, and perineum were inspected and no lacerations were noted. Excellent hemostasis was observed. The mother and baby are recovering in stable and good condition in the room. Sponge and instrument counts were correct x 2. Breana Banda DO [facility] Vaginal Delivery Charge Vaginal Delivery Codes: 19153 global code for the antepartum, delivery, and post- Delivery Type Details: [facility]
[2021-01-01] MEDS ORDERED: HYDROCORTISONE ACETATE 25 MG SUPP PR PRN (16:29)
[2021-01-01] MEDS ORDERED: ACETAMINOPHEN 325 MG TAB PO PRN (16:29)
[2021-01-01] MEDS ORDERED: BENZOCAINE 20% AER SPR 82.5 GM CAN EXT PRN (16:29)
[2021-01-01] MEDS ORDERED: SUPERCREAM 0.870% 15 GM JAR EXT PRN (16:29)
[2021-01-01] MEDS ORDERED: bisacodyL 10 MG SUPP PR PRN (16:29)
[2021-01-01] MEDS ORDERED: DIPHTHERIA/TETANUS/PERTUSSIS 0.5 ML SYR/VIAL IM ONE (16:29)
[2021-01-01] MEDS ORDERED: ALBUTEROL HFA 8 GM INHALER INH PRN (16:29)
[2021-01-01] MEDS: IBUPROFEN 600 MG TAB PO PRN ×2 (17:40→22:19)
--- NOTE | 2021-01-01 18:21 | Anesthesia Procedure Note ---
Date of Service January 01, 2021 Anesthesia Post Epidural Note Vital Signs Vital Signs: Temp Pulse Resp BP Pulse Ox 36.6 C 99 H 18 110/67 100 01/01/21 14:35 01/01/21 18:08 01/01/21 14:35 01/01/21 18:08 01/01/21 15:57 Notes Mental Status: alert / awake / arousable and participated in evaluation Nausea / Vomiting: adequately controlled Pain: adequately controlled Airway Patency, RR, SpO2: stable & adequate BP & HR: stable & adequate Hydration State: stable & adequate Neuraxial Anesthesia: was administered and sensory block is resolving Anesthetic Complications: no major complications apparent and Pt Satisfied with anesthetic care Epidural: Removed without complications and With tip intact
[2021-01-01] MEDS ORDERED: DOCUSATE SODIUM 100 MG CAP PO ONE (19:38)
[2021-01-01] MEDS: DOCUSATE SODIUM 100 MG CAP PO SCH (22:19)
[2021-01-02 06:30] LABS: Hematocrit (blood only) 33.6 % (37-47); Hemoglobin 10.9 g/dL (12.0-16.0)
[2021-01-02] MEDS: DOCUSATE SODIUM 100 MG CAP PO SCH (07:40)
[2021-01-02] MEDS: IBUPROFEN 600 MG TAB PO PRN (07:41)
[2021-01-02] MEDS ORDERED: PRENATAL VITAMIN 1 TAB PO SCH (08:00)
--- NOTE | 2021-01-02 08:05 | Obstetrical Progress Note ---
Date of Service January 02, 2021 Assessment & Plan (1) Supervision of with grand multiparity, antepartum: PPD#1, doing well. Considering going home today. Instructions reviewed. Subjective Ambulation: ambulating normally Voiding: no voiding problems Diet Tolerance:: regular diet Lochia:: Moderate Feeding Type:: breast feeding Review of Systems All systems reviewed & are unremarkable except as noted in HPI & below Physical Exam Constitutional WD/WN, vitals as above no acute distress Respiratory normal respiratory effort Cardiovascular Rate/Rhythm: regular rate and regular rhythm Gastrointestinal (Abdomen) Inspection/Auscultation: abdomen normal to inspection; abdomen not distended Percussion/Palpation: abdomen soft Genitourinary OB Exam Abdomen: + fundal height Fundus: + firm; not tender Results & Data ([facility]) Vital Signs (Past 12 Hours) Vital Signs Temp Pulse Resp BP Pulse Ox 01/02/21 07:42 36.5 C 65 18 100/65 97 01/02/21 04:00 36.6 C 74 18 112/74 01/02/21 00:10 36.7 C 83 18 110/73
[2021-01-02] MEDS ORDERED: bisacodyL 5 MG TABEC PO SCH (20:00)
== END 2021-01-02 16:38 | disposition home or self-care (01) | DRG 806 ==
LOC: 4S1 07:29 → 4S2 19:17